=== PATIENT | male | born 1945 | race Caucasian/White ===

== ENCOUNTER 2018-11-09 09:54 | Inpatient (IN) | payer MEDICARE ==
[2018-11-09] MEDS ORDERED: ISOVUE-370 76%-LOCM 1 ML ONE (10:09)
[2018-11-09 10:42] LABS: Mean Corpuscular HGB CONC 33.5 g/dL (32.0-36.0); Mean Corpuscular Hemoglobin 36.2 pg (27.0-31.0); Mean Platelet Volume 7.2 fL (7.4-10.4); Platelet Count 140 thou/uL (130-400); RBC Distribution Width 14.3 % (11.5-14.5); Red Blood Cell (RBC) Count 3.05 mill/uL (4.70-6.10); White Blood Cell (WBC) Count 2.3 thou/uL (4.8-10.8)
[2018-11-09] MEDS ORDERED: Metoprolol Tartrate 5 MG/5 ML VIAL ONE (10:46)
[2018-11-09 10:56] LABS: #Lymphocytes 0.3 thou/uL (1.20-3.40); #Monocytes 0.1 thou/uL (0.11-0.59); #Neutrophils 1.9 thou/uL (1.40-6.50); %Eosinophils 0.3 % (0.0-10.0); %Lymphocytes 12.8 % (21.0-51.0); %Monocytes 4.2 % (0.0-10.0); %Neutrophils 82.8 % (42.0-75.0); MDiff Complete? YES; Macrocytosis SLIGHT = 6-15 cells (100X) (0-5/hpf); Ovalocytes SLIGHT = 2-5 cells (100X) (0-1/hpf); Platelet Morphology Comment Appears Adequate; Polychromasia SLIGHT = 2-3 cells (100X) (0-2/hpf)
[2018-11-09 11:01] LABS: ALT (SGPT) 21 U/L (8-55); AST (SGOT) 58 U/L (5-34); Albumin 3.9 g/dL (3.4-4.8); Alkaline Phosphatase 57 U/L (40-150); Anion Gap 17 mmol/L (10-20); BUN (Urea Nitrogen) 23 mg/dL (8.4-25.7); Bilirubin, Total 1.1 mg/dL (0.2-1.2); Calc. Creatinine Clearance 0 mL/min (70-130); Calcium 8.3 mg/dL (7.8-10.44); Carbon Dioxide 23 mmol/L (23-31); Chloride 93 mmol/L (98-107); Estimated GFR-MDRD 70; Globulin 3.5 g/dL (2.4-3.5); Glucose 115 mg/dL (83-110); Potassium 4.4 mmol/L (3.5-5.1); Protein, Total 7.4 g/dL (5.8-8.1); Sodium 129 mmol/L (136-145)
--- NOTE | 2018-11-09 12:22 | CT ---
CONTRAST ENHANCED CTA CHEST: HISTORY: Shortness of breath, cough. History of metastatic breast cancer. FINDINGS: Contrast-enhanced CTA chest performed. Two-D and 3D reconstructed images performed on an independent 3D work station. Images demonstrate a left subclavian MediPort catheter in place. Calcification of the aorta and renato nary arteries seen. A small pericardial effusion is seen. No evidence of pleural effusion seen. Bilateral areas of airspace opacity seen in both upper lobes and to a lesser degree right middle lobe and also some in the right and left lower lobes. Chronic interstitial lung parenchymal changes also present. Peribronchial thickening is also noted bilaterally, more prominent in the lung bases. No evidence of filling defect seen in the pulmonary arteries to suggest pulmonary emboli. There is s ome heterogeneity and expansion noted in the mid sternum along the upper aspect of the body of the st ernum. This may represent old fracture versus metastatic lesion. Correlate with history. IMPRESSION: 1. No evidence of pulmonary emboli. 2. Small pericardial effusion. 3. Bilateral airspace opacities compatible with bilateral pneumonias. 4. Mid sternal area of osseous heterogeneity. This may be due to old sternal fracture versus possib le mid sternal metastases. Correlate with history. POS: [facility]
[2018-11-09 13:00] LABS: INR-International Normal Ratio 1.8; Prothrombin Time 21.4 SEC (12.0-14.7)
[2018-11-09 13:01] LABS: PTT 53.1 SEC (22.9-36.1)
[2018-11-09] MEDS ORDERED: Cefepime 1 GM VIAL ONE (14:20)
[2018-11-09] MEDS ORDERED: Cepastat Lozenges 1 LOZ PO PRN (16:33)
[2018-11-09] MEDS ORDERED: Calcium Carbonate 500 MG ChewTAB PO PRN (17:35)
[2018-11-09] MEDS ORDERED: Senokot S 8.6-50 MG TAB PO PRN (17:35)
[2018-11-09] MEDS ORDERED: Ondansetron PF 4 MG/2 ML Vial IVP PRN (17:35)
[2018-11-09] MEDS ORDERED: Ondansetron ODT 4 MG TAB PO PRN (17:35)
[2018-11-09] MEDS ORDERED: ALPRAZolam 0.25 MG TAB PO PRN (17:45)
[2018-11-09] MEDS ORDERED: Polyethylene Glycol 3350 17 GM Packet PO PRN (17:48)
[2018-11-09] MEDS ORDERED: Warfarin Sodium 1 MG TAB PO SCH (18:00)
[2018-11-09 18:20] VITALS: BMI 34.5
[2018-11-09] MEDS: Benzonatate 100 MG CAP PO PRN ×2 (18:20→23:08)
[2018-11-09] MEDS: Acetaminophen 325 MG TAB PO PRN (18:20)
[2018-11-09] MEDS: Sodium Chloride 0.9% 1,000 ML IV SCH (18:22)
--- NOTE | 2018-11-09 18:27 | HP ---
PRIMARY CARE PHYSICIAN: None. 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 CHIEF COMPLAINT: Cough with generalized weakness. The patient was sent to the emergency room by the covering oncologist. HISTORY OF PRESENT ILLNESS: The patient is a 73-year-old white male with metastatic right breast malignancy; chronic atrial fibrillation, on anticoagulation; hypertension; hyperlipidemia; and chronic anticoagulation, presented to the emergency room with above symptoms. Over the past three weeks, the patient is not feeling well. He has progressively worsening cough, which is productive of small amount of thick whitish phlegm. He gets short of breath on moderate exertion. He has been feeling generally weak and fatigued. He felt dizzy and lightheaded yesterday without significant injuries. He has not been eating well over the past two weeks. He denies any chest pain or significant wheezing. He is currently on Faslodex every 4 weeks as well as palbociclib for 21 days in a month. In the emergency room, his initial vital signs showed temperature of 98.4, respirations of 26, pulse rate of 128 with a blood pressure of 130/84, with O2 saturation of 88% on room air. His O2 saturation improved with supplementation. He received cefepime, Levaquin, and 5 mg metoprolol in the emergency room. CT angiogram of the chest showed bilateral pneumonia. PAST MEDICAL HISTORY: 1. Chronic atrial fibrillation, on anticoagulation. 2. Metastatic right breast malignancy. 3. Hypertension. 4. Hyperlipidemia. PAST SURGICAL HISTORY: 1. Right breast mastectomy with radiation. 2. Right ankle surgery. 3. Right wrist surgery. ALLERGIES: 1. THE PATIENT IS ALLERGIC TO DEMEROL, THAT CAUSES ANAPHYLAXIS. 2. PENICILLIN, REACTION UNKNOWN. CURRENT HOME MEDICATIONS: 1. Tylenol No. 3 as needed. 2. Allopurinol 300 mg daily. 3. Xanax as needed. 4. Coumadin 2 mg on Tuesdays and and 1 mg on rest of the days. 5. Faslodex every 4 weeks. 6. Lovastatin 20 mg daily. 7. Robaxin as needed. 8. Metoprolol tartrate 50 mg daily. 9. Palbociclib 125 mg capsule for 21 days followed by 7-day off, then repeat cycle. 10. MiraLAX daily. 11. Senokot-S daily. 12. Tramadol as needed. SOCIAL HISTORY: The patient currently lives at home with his family. He denies current use of smoking, alcohol, or drug use. He makes his own decision with the help of his family. He is full code. FAMILY HISTORY: Negative for premature coronary artery disease. REVIEW OF SYSTEMS: All other review of systems were reviewed and were found negative. PHYSICAL EXAMINATION: VITAL SIGNS: As discussed above. GENERAL: A 73-year-old male, ill appearing, in no apparent distress. Feels better. HEENT: Head, atraumatic and normocephalic. Sclerae anicteric. Moist mucous membranes. No oral lesion. NECK: Supple. No JVD appreciated. No carotid bruit. LUNGS: Showed bilateral rhonchi mainly in the upper lobes with scattered wheezing. There was scattered rales. Lungs were symmetrical. HEART: S1 and S2 present. Irregularly irregular. No rubs or gallops appreciated. 2/6 systolic murmur over the mitral area. ABDOMEN: Soft, nontender, obese. Bowel sounds present. EXTREMITIES: Trace edema in bilateral lower extremities. SKIN: Warm and dry. LYMPH NODES: No palpable lymph nodes in the neck. PERIPHERAL VASCULAR: Radial pulses palpable bilaterally. MUSCULOSKELETAL: No joint swelling or tenderness. SKIN: Warm and dry. LABORATORY FINDINGS: WBC 2.3, hemoglobin 11, hematocrit 32.9, and platelets 140. INR 1.8. Chemistry showed sodium 129, potassium 4.4, chloride 93, bicarb 23, BUN 23, and creatinine 1.04. Lactic acid 2.8, AST 58. Troponin negative. BNP 77. CT angiogram of the chest per my review as discussed above. EKG by my review showed atrial fibrillation with rapid ventricular response with right bundle-branch block and left axis deviation. IMPRESSION: 1. Acute hypoxic respiratory failure/Sepsis with acute organ dysfunction secondary to bilateral pneumonia. ?Pneumococcal 2. Metastatic right breast malignancy, on chemotherapy. 3. Chronic pain syndrome. 4. Atrial fibrillation with rapid ventricular response, requiring IV metoprolol. 5. Chronic anticoagulation with subtherapeutic INR. 6. Hyperlipidemia. 7. Lactic acidosis secondary to sepsis. 8. Hyponatremia. 9. Leukopenia. 10. Chronic anemia. 11. Macrocytosis. 12. Pericardial effusion on CT. 13. Obesity BMI 34. PLAN: The patient will be monitored on the telemetry unit due to atrial fibrillation with rapid ventricular response. Oncology team and Infectious Disease will be consulted. We will continue cefepime and Levaquin. Blood cultures have been sent. We will check influenza screen. We will resume anticoagulation. Consult Physical Therapy/Occupational Therapy. Fall precautions. Gentle IV hydration. Echocardiogram due to pericardial effusion on the CT. Plan of care was discussed with the patient in detail. He stated understanding. The patient will require 2 to 3 days for stabilization. Job ID: [id number] MTDD
[2018-11-09] MEDS: Budesonide 0.5 MG/2 ML NEB INH SCH (19:13)
[2018-11-09] MEDS ORDERED: Nitroglycerin 0.4 MG TAB (25 Tab Bottle) PO PRN (19:57)
[2018-11-09] MEDS: Allopurinol 300 MG TAB PO SCH (20:25)
[2018-11-09] MEDS: guaiFENesin ER 600 MG TAB PO SCH ×2 (20:25→20:27)
[2018-11-09] MEDS: Docusate 100 MG CAP PO SCH (20:25)
[2018-11-09] MEDS: Metoprolol Tartrate 25 MG TAB PO SCH (20:25)
[2018-11-10] MEDS: Cefepime 2 GM in Sodium Chloride 0.9% 100 ML IVPB SCH ×2 (03:19→15:46)
[2018-11-10] MEDS: Benzonatate 100 MG CAP PO PRN ×3 (05:12→22:11)
[2018-11-10] MEDS: Sodium Chloride 0.9% 1,000 ML IV SCH ×2 (05:13→22:10)
[2018-11-10 06:26] LABS: INR-International Normal Ratio 2.5; PTT 66.9 SEC (22.9-36.1); Prothrombin Time 27.4 SEC (12.0-14.7)
[2018-11-10] MEDS: Budesonide 0.5 MG/2 ML NEB INH SCH ×2 (06:42→18:50)
[2018-11-10 06:43] LABS: #Lymphocytes 0.3 thou/uL (1.20-3.40); %Basophils 0.1 % (0.0-1.0); %Eosinophils 2.5 % (0.0-10.0); %Lymphocytes 18.4 % (21.0-51.0); %Monocytes 2.1 % (0.0-10.0); %Neutrophils 76.9 % (42.0-75.0); Hemoglobin 9.4 g/dL (14.0-18.0); MDiff Complete? YES; Macrocytosis SLIGHT = 6-15 cells (100X) (0-5/hpf); Mean Platelet Volume 7.6 fL (7.4-10.4); Platelet Count 106 thou/uL (130-400); Platelet Morphology Comment Appears Decreased; Red Blood Cell (RBC) Count 2.54 mill/uL (4.70-6.10); White Blood Cell (WBC) Count 1.4 thou/uL (4.8-10.8)
[2018-11-10 06:44] LABS: ALT (SGPT) 16 U/L (8-55); AST (SGOT) 39 U/L (5-34); Albumin 3.2 g/dL (3.4-4.8); Alkaline Phosphatase 48 U/L (40-150); Anion Gap 12 mmol/L (10-20); BUN (Urea Nitrogen) 18 mg/dL (8.4-25.7); Bilirubin, Total 0.6 mg/dL (0.2-1.2); Calc. Creatinine Clearance 132 mL/min (70-130); Calcium 7.6 mg/dL (7.8-10.44); Carbon Dioxide 25 mmol/L (23-31); Chloride 100 mmol/L (98-107); Estimated GFR-MDRD Greater than 90; Globulin 2.7 g/dL (2.4-3.5); Glucose 108 mg/dL (83-110); Magnesium 1.7 mg/dL (1.6-2.6); Potassium 3.9 mmol/L (3.5-5.1); Protein, Total 5.9 g/dL (5.8-8.1); Sodium 133 mmol/L (136-145)
[2018-11-10 07:27] LABS: Folate (Folic Acid) 6.4 ng/mL (7.0-31.4)
[2018-11-10] MEDS: Docusate 100 MG CAP PO SCH ×2 (09:22→19:36)
[2018-11-10] MEDS: Folic Acid 1 MG TAB PO SCH (09:22)
[2018-11-10] MEDS: Metoprolol Tartrate 25 MG TAB PO SCH ×2 (09:22→19:36)
[2018-11-10] MEDS: guaiFENesin ER 600 MG TAB PO SCH ×4 (09:22→20:30)
[2018-11-10] MEDS ORDERED: Sodium Chloride 0.65% Nasal 44 ML BOT EA NARE PRN (14:04)
[2018-11-10] MEDS ORDERED: Chloraseptic Spray 180 ml Bottle PO PRN (14:06)
[2018-11-10] MEDS ORDERED: Lidocaine Viscous Sol 2% 15 ml UD Cup SSP PRN (14:06)
[2018-11-10] MEDS: Warfarin Sodium 1 MG TAB PO SCH (17:52)
[2018-11-10] MEDS: guaiFENesin/Codeine Phosphate 200 mg/20 mg 10 ml UD Cup PO PRN (19:35)
[2018-11-10] MEDS: Allopurinol 300 MG TAB PO SCH (19:36)
--- NOTE | 2018-11-10 22:32 | CON ---
DATE OF CONSULTATION: REASON FOR CONSULTATION: Metastatic breast cancer, neutropenia. HISTORY OF PRESENT ILLNESS: This is a 73-year-old male with history of breast cancer diagnosed in 2012, status post mastectomy and chemotherapy with recurrence in 2013 or 2014, status post sternal radiation with a second sternal recurrence one year after that, status post radiation and currently on Ibrance plus Faslodex plus Lupron, presenting to the hospital with shortness of breath and cough. The patient has progressively worsening cough and shortness of breath with accompanying dizziness, lightheadedness, fatigue, and generalized not feeling well over the past couple of weeks. The patient feels slightly better since admission to the hospital with improvement in his cough. Of note, on admission, the patient had a CT angio of the chest that did not reveal pulmonary embolism, but did show bilateral pneumonia along with a midsternal area of osseous heterogeneity that perhaps could be secondary to a sternal metastasis. The patient states he had a PET scan approximately 30 days ago that showed activity in his sternum as well as his left hip. He has been on Ibrance and Faslodex for the last 2 years and Lupron was started last month after the PET scan. He has tolerated his therapy well, but states his Ibrance has needed to be held in the past due to low counts. The patient states he is also taking an injection for his bones. REVIEW OF SYSTEMS: 10-point review of systems negative except as per HPI. PAST MEDICAL HISTORY: Metastatic right breast cancer; atrial fibrillation, on Coumadin; hypertension, and hyperlipidemia. PAST SURGICAL HISTORY: Right breast mastectomy, right ankle surgery, right wrist surgery. ALLERGIES: DEMEROL, PENICILLIN. HOME MEDICATIONS: Reviewed. SOCIAL HISTORY: Lives at home with his family. No smoking, alcohol, or drug use. FAMILY HISTORY: Noncontributory. PHYSICAL EXAMINATION: VITAL SIGNS: Temperature 97.3, pulse 106, respirations 18, saturating 97% on 2 L by nasal cannula, and blood pressure 133/70. GENERAL APPEARANCE: The patient is sitting up in chair, in no acute distress. HEENT: No cervical lymphadenopathy. No jaundice or scleral icterus noted. CARDIOVASCULAR: S1, S2 and regular rate and rhythm. RESPIRATIONS: Diffuse rhonchi and difficult to assess due to coughing fits when he takes a deep breath. However, there is good air movement throughout. The patient is currently on 2 L by nasal cannula. ABDOMEN: Obese, soft, nondistended, and nontender. STERNAL: There is no sternal tenderness. NEUROLOGIC: Cranial nerves II through XII are grossly intact. PSYCHIATRIC: Awake, alert, and oriented x3. LYMPHATICS: There is no palpable lymphadenopathy. CHEST: No sternal tenderness. The patient is status post right mastectomy. LABORATORY DATA: White blood cells 2.3, hemoglobin 11.0, platelets 140 on admission, ANC 1900 on admission. Laboratory data this morning; white blood cells 1.4, hemoglobin 9.4, platelets 106. ANC this morning 1076. Sodium 133, potassium 3.9, BUN 18, creatinine 0.77. Lactic acid 2.8 on admission down to 2.0, calcium 7.6. AST 39, ALT 16, alkaline phosphatase 48, and albumin 3.2. Vitamin B12 551 , folate 6.40. IMAGING DATA: CT angio of the chest shows bilateral pneumonias and possible sternal metastasis. The sternal metastasis is avid on PET as per patient reported history. ASSESSMENT AND PLAN: A 73-year-old male with right breast cancer metastatic to sternum and left hip, currently on Ibrance, Faslodex, Lupron, and a bone strengthening agent, presenting with neutropenia and bilateral pneumonia. The patient's vitals are stable and his heart rate has improved and is currently admitted to [facility] for atrial fibrillation with rapid ventricular response. The patient's ANC was 1900 on admission, is currently 1070. Therefore, he does not require Neupogen at this time. His Ibrance is currently on hold and I recommend continuing to hold this and not to restart until he sees his oncologist in [place]. I recommend trending his white blood cells and if he dips below 1000 ANC tomorrow, then would recommend initiating Neupogen. The patient also has folic acid deficiency and he should be started on folic acid supplementation. I will monitor his clinical course and follow along with you. Thank you for this consult. Job ID: [id number] [facility] SYSTEM[facility]
--- NOTE | 2018-11-10 22:32 | PRG ---
DATE OF SERVICE: 11/10/2018 SUBJECTIVE: The patient denies any new complaints. Cough is controlled on current antitussives. He gets short of breath on moderate exertion. He denies any other complaints. REVIEW OF SYSTEMS: No nausea, vomiting, constipation, diarrhea, or fatigue reported. CURRENT MEDICATIONS: Current medications were reviewed. The patient is currently on cefepime with Levaquin, IV fluid, Mucinex, metoprolol, and warfarin. IMAGING DATA: Telemetry monitoring by my review showed atrial fibrillation. PHYSICAL EXAMINATION: GENERAL: A 73-year-old male, in no apparent distress. No chest pain. LUNGS: Showed diffuse rhonchi with scattered wheezing. There was some rales mainly in the upper lobes bilaterally. No accessory muscle use. HEART: S1 and S2 present. Irregularly irregular. No rubs or gallops. ABDOMEN: Soft, nontender. Bowel sounds present. No rebound or guarding. EXTREMITIES: No edema or calf tenderness. NEUROLOGIC: Grossly nonfocal. Moves all 4 extremities. PSYCHIATRY: Normal affect. Alert, awake, and oriented x3. VITAL SIGNS: Intake of 1915. LABORATORY FINDINGS: Folic acid 6.4, vitamin B12 551. WBC 1.4 with 77% neutrophils, hemoglobin 9.4, INR 2.5. TSH was normal. Creatinine 0.7. Blood cultures negative. Influenza screen negative. Echocardiogram showed mild to moderate tricuspid regurgitation. Ejection fraction 50% to 55% with moderate mitral regurgitation. IMPRESSION: 1. Acute hypoxic respiratory failure. 2. Sepsis with acute organ dysfunction secondary to bilateral pneumonia, suspected pneumococcal. 3. Neutropenia secondary to chemotherapy. 4. Metastatic right breast malignancy, on chemo, currently on hold per primary oncologist. 5. Chronic pain syndrome. 6. Atrial fibrillation with rapid ventricular response, rate controlled. 7. Chronic anticoagulation. 8. Lactic acidosis due to sepsis, improved. 9. Hyperlipidemia. 10. Hyponatremia. 11. Chronic anemia. 12. Folic acid deficiency causing macrocytosis. 13. Pericardial effusion on CT. Echocardiogram did not show significant pericardial effusion. 14. Obesity with a BMI of 34. PLAN: Cefepime and Levaquin will be continued. Await Infectious Disease and Oncology input. Neutropenic precautions. Continue current medications. We will monitor warfarin closely due to possible interaction with quinolones. We will recheck labs in a.m. The patient will probably require 2-3 more days for stabilization. Job ID: [id number]
[2018-11-11] MEDS: Cefepime 2 GM in Sodium Chloride 0.9% 100 ML IVPB SCH ×2 (02:59→15:59)
[2018-11-11 07:05] LABS: PTT 74.5 SEC (22.9-36.1)
[2018-11-11 07:08] LABS: INR-International Normal Ratio 2.7; Prothrombin Time 28.9 SEC (12.0-14.7)
[2018-11-11] MEDS: Budesonide 0.5 MG/2 ML NEB INH SCH ×2 (07:15→18:42)
[2018-11-11 07:21] LABS: ALT (SGPT) 15 U/L (8-55); AST (SGOT) 34 U/L (5-34); Alkaline Phosphatase 52 U/L (40-150); Anion Gap 12 mmol/L (10-20); BUN (Urea Nitrogen) 15 mg/dL (8.4-25.7); Bilirubin, Total 0.5 mg/dL (0.2-1.2); Calc. Creatinine Clearance 143 mL/min (70-130); Calcium 7.5 mg/dL (7.8-10.44); Carbon Dioxide 23 mmol/L (23-31); Chloride 105 mmol/L (98-107); Estimated GFR-MDRD Greater than 90; Globulin 2.7 g/dL (2.4-3.5); Glucose 94 mg/dL (83-110); Magnesium 1.6 mg/dL (1.6-2.6); Protein, Total 5.7 g/dL (5.8-8.1); Sodium 136 mmol/L (136-145)
[2018-11-11 07:58] LABS: #Eosinphils 0.1 thou/uL (0.0-0.7); #Lymphocytes 0.3 thou/uL (1.20-3.40); #Monocytes 0.1 thou/uL (0.11-0.59); #Neutrophils 0.8 thou/uL (1.40-6.50); %Eosinophils 5.3 % (0.0-10.0); %Lymphocytes 23.9 % (21.0-51.0); %Neutrophils 64.9 % (42.0-75.0); Hemoglobin 9.2 g/dL (14.0-18.0); MDiff Complete? YES; Mean Corpuscular HGB CONC 33.9 g/dL (32.0-36.0); Mean Corpuscular Hemoglobin 38.2 pg (27.0-31.0); Mean Platelet Volume 7.5 fL (7.4-10.4); Platelet Count 96 thou/uL (130-400); Platelet Morphology Comment Appears Decreased; RBC Distribution Width 14.2 % (11.5-14.5); White Blood Cell (WBC) Count 1.2 thou/uL (4.8-10.8)
[2018-11-11] MEDS: Metoprolol Tartrate 25 MG TAB PO SCH ×2 (08:26→21:00)
[2018-11-11] MEDS: guaiFENesin/Codeine Phosphate 200 mg/20 mg 10 ml UD Cup PO PRN ×2 (08:27→16:56)
[2018-11-11] MEDS: Folic Acid 1 MG TAB PO SCH ×2 (08:27→21:00)
[2018-11-11] MEDS: Docusate 100 MG CAP PO SCH ×2 (08:27→21:00)
[2018-11-11] MEDS: guaiFENesin ER 600 MG TAB PO SCH ×2 (08:27→21:00)
--- NOTE | 2018-11-11 12:20 | RAD ---
PA AND LATERAL CHEST: Date: 11/11/18 HISTORY: Pneumonia, follow-up evaluation. FINDINGS: Left subclavian MediPort catheter remains in place. Cardiac silhouette is magnified by projection. Th ere is mild increase in interstitial densities bilaterally, which may be related to mild chronic lung changes, but there is suggestion of mild reticulonodular densities in the left mid lung zone at the left lung base which may be related to infectious or inflammatory process. There is no consolidation or pleural fluid seen. Surgical clips overlie the right axillary region. No other interval change. IMPRESSION: Mild chronic lung changes. However, there is also suggestion of mild reticulonodular densities in the left mid lung zone and at the left lung base, which could be related to infectious or inflammatory p rocess. Follow-up evaluation is suggested. POS: [facility]
[2018-11-11] MEDS: Sodium Chloride 0.9% 1,000 ML IV SCH (14:02)
[2018-11-11] MEDS: Warfarin Sodium 1 MG TAB PO SCH (16:00)
--- NOTE | 2018-11-11 18:48 | PDOC.PN ---
- Subjective Encounter Start Date: 11/11/18 Encounter Start Time: 14:00 Patient seen and examined for Sepsis. Feels gen weak. Cough +. No new complaints. No overnight events - Objective Resuscitation Status - Order Detail: 11/09/18 17:35 Resuscitation Status Routine Resuscitation Status: FULL: Full Resuscitation MAR Reviewed: Yes Vital Signs & Weight: Vital Signs (12 hours) Temp Pulse Pulse Pulse Resp BP BP 11/11/18 18:42 105 H 18 11/11/18 16:00 98.0 F 110 H 20 11/11/18 13:55 133 H 106 H 141/86 H 130/84 11/11/18 12:00 97.7 F 94 15 11/11/18 07:35 97.6 F 109 H 16 BP Pulse Ox 11/11/18 18:42 99 11/11/18 16:00 130/68 98 11/11/18 13:55 11/11/18 12:00 132/63 94 L 11/11/18 07:35 155/63 H 97 Weight Weight 248 lb I&O: 11/10/18 11/11/18 11/12/18 06:59 06:59 06:59 Intake Total 360 1965 2150 Output Total 1170 725 Balance -810 1240 2150 Result Diagrams: 11/11/18 05:53 11/11/18 05:53 Radiology Reviewed by me: Yes (CXR - No significant changes) EKG Reviewed by me: Yes (Tele Afib) Phys Exam - Physical Examination Constitutional: NAD Respiratory: no wheezing Scat rales/rhonchi Cardiovascular: no rub, irregular Gastrointestinal: soft, non-tender, positive bowel sounds Musculoskeletal: no edema Dx/Plan - Plan IMPRESSION: 1. Acute hypoxic respiratory failure. 2. Sepsis with acute organ dysfunction secondary to bilateral pneumonia ? pneumococcal. 3. Neutropenia secondary to chemotherapy. 4. Metastatic right breast malignancy. 5. Chronic pain syndrome. 6. Atrial fibrillation with rapid ventricular response. 7. Chronic anticoagulation. 8. Lactic acidosis due to sepsis, improved. 9. Hyperlipidemia. 10. Hyponatremia. 11. Chronic anemia. 12. Folic acid deficiency causing macrocytosis. 13. Pericardial effusion on CT. Echocardiogram did not show significant pericardial effusion. 14. Obesity with a BMI of 34. 15. Hypomagnesemia PLAN: Cont Cefepime and Levaquin Await Infectious Disease Oncology input appreciated Cont Neutropenic precautions. Continue current medications as below Replace Magnessium PT/INR in AM Microbiology 11/09/18 23:39 Nasal swab Influenza Types A,B Direct EIA - Final 11/09/18 10:08 Venous blood - Left Arm Blood Culture - Preliminary NO GROWTH AT 48 HOURS Laboratory Tests 11/10/18 11/11/18 06:00 05:53 INR 2.7 Folate 6.40 L Review of Systems - Review of Systems Respiratory: Cough, Sputum. negative: Dry, Shortness of Breath, Hemoptysis, SOB with Excertion, Pleuritic Pain, Wheezing Cardiovascular: negative: chest pain, palpitations, orthopnea, paroxysmal nocturnal dyspnea, edema, light headedness, other Gastrointestinal: negative: Nausea, Vomiting, Abdominal Pain, Diarrhea, Constipation, Melena, Hematochezia, Other - Medications/Allergies Allergies/Adverse Reactions: Allergies Allergy/AdvReac Type Severity Reaction Status Date / Time meperidine [From Demerol] Allergy Severe Anaphylaxis Verified 11/09/18 20:24 Penicillins Allergy Verified 11/09/18 20:24 Medications: Current Medications Acetaminophen (Tylenol) 650 mg PO Q4H PRN PRN Reason: Headache/Fever/Mild Pain (1-3) Last Admin: 11/09/18 18:20 Dose: 650 mg Albuterol/Ipratropium (Duoneb) 3 ml NEB [id number] PRN PRN Reason: SOB &/or Wheezing Allopurinol (Zyloprim) 300 mg PO HS [facility] Last Admin: 11/10/18 19:36 Dose: 300 mg Alprazolam (Xanax) 0.25 mg PO BIDPRN PRN PRN Reason: Anxiety Benzonatate (Tessalon) 100 mg PO TID PRN PRN Reason: Cough Last Admin: 11/10/18 22:11 Dose: 100 mg Budesonide (Pulmicort Neb Solution) 0.5 mg INH BID-RT [facility] Last Admin: 11/11/18 18:42 Dose: 0.5 mg Calcium Carbonate (Tums) 1,000 mg PO Q4H PRN PRN Reason: Heartburn or Indigestion Docusate Sodium (Colace) 100 mg PO BID [facility] Last Admin: 11/11/18 08:27 Dose: 100 mg Folic Acid (Folvite) 1 mg PO BID [facility] Guaifenesin (Mucinex) 600 mg PO Q12HR [facility] Last Admin: 11/11/18 08:27 Dose: 600 mg Guaifenesin (Robitussin Sf) 200 mg PO Q4H PRN PRN Reason: Cough Guaifenesin/Codeine Phosphate (Robitussin Ac) 5 ml PO Q6H PRN PRN Reason: Cough Last Admin: 11/11/18 16:56 Dose: 5 ml Sodium Chloride (Normal Saline 0.9%) 1,000 mls @ 75 mls/hr IV .[id number] [facility] Last Admin: 11/11/18 14:02 Dose: 1,000 mls Cefepime HCl 2 gm/ Sodium (Chloride) 100 mls @ 200 mls/hr IVPB 0300,1500 [facility] Last Admin: 11/11/18 15:59 Dose: 100 mls Levofloxacin 500 mg/ Device 100 mls @ 100 mls/hr IVPB 1400 [facility] Last Admin: 11/11/18 14:02 Dose: 100 mls Magnesium Sulfate 2 gm/ Sodium (Chloride) 104 mls @ 100 mls/hr IVPB ONE [facility] Lidocaine HCl (Xylocaine 2% Viscous) 15 ml SSP Q4HR PRN PRN Reason: Dry Mouth Metoprolol Tartrate (Lopressor) 25 mg PO BID [facility] Last Admin: 11/11/18 08:26 Dose: 25 mg Mineral Oil/White Petrolatum (Aquaphor 99 Gm) 0 gm TOP PRN PRN PRN Reason: SKIN IRRITATION Miscellaneous Medication (Pharmacy To Dose) 1 each PO .WARFARIN [facility] Nitroglycerin (Nitrostat) 0.4 mg PO Q5MIN PRN PRN Reason: Chest Pain Ondansetron HCl (Zofran Odt) 4 mg PO Q6H PRN PRN Reason: Nausea/Vomiting Ondansetron HCl (Zofran) 4 mg IVP Q6H PRN PRN Reason: Nausea/Vomiting Phenol (Chloraseptic [place] 180 Ml Bot) 0 ml PO BIDPRN PRN PRN Reason: Sore Throat Polyethylene Glycol (Miralax) 17 gm PO DAILY PRN PRN Reason: Constipation Senna/Docusate Sodium (Senokot S) 2 tab PO BID PRN PRN Reason: Constipation Sodium Chloride (Flush - Normal Saline) 10 ml IVF PRN PRN PRN Reason: Saline Flush Sodium Chloride (Pike Nasal [place] 0.65%) 0 ml EA NARE TID PRN PRN Reason: Nasal Congestion Tbo-Filgrastim (Granix) 480 mcg SC DAILY@1400 [facility] Last Admin: 11/11/18 15:59 Dose: 480 mcg Throat Lozenges (Cepastat Lozenges) 1 julián PO Q2H PRN PRN Reason: Sore Throat Warfarin Sodium (Coumadin) 1 mg PO SuMoWeFrSa@1700 [facility] Last Admin: 11/11/18 16:00 Dose: 1 mg Warfarin Sodium (Coumadin) 2 mg PO TTH@1700 [facility]
--- NOTE | 2018-11-11 18:48 | CON ---
DATE OF CONSULTATION: 11/11/2018 REASON FOR CONSULTATION: Pneumonia with sepsis. HISTORY OF PRESENT ILLNESS: A 73-year-old patient, who has a history of atrial fibrillation and metastatic right-sided breast cancer diagnosed about 5 years ago, who has been on chemotherapy. His first recurrence was noted in 2013 and had sternal radiation and currently, he is on palbociclib. He gets cycle of 21 days on the therapy and 7 days off. He is admitted this time with worsening dyspnea with cough, lightheadedness, fatigue and general malaise. He had a CT angio on admission, which showed no evidence of pulmonary embolism, but there was evidence of bilateral pulmonary infiltrates. His last PET scan was 30 days before admission and showed sternum activity. Initial labs with a white cell count 2.3, hemoglobin 11, and platelets 140, with 82% neutrophils. Creatinine 1.04, AST 58, ALT 21, alkaline phosphatase 57, and albumin 3.9. Two sets of blood cultures thus far have been negative and influenza antigen was negative. He has been given broad-spectrum and antimicrobial therapy with cefepime and levofloxacin. Still having frequent episodes of coughing spells. His white cells have decreased to 1.2 with 64% neutrophils, and a followup chest x-ray demonstrates reticulonodular densities left midlung and left lung base. An echocardiogram demonstrated dilated left atrium and moderate mitral regurgitation. Currently, Mr. Loaiza still having intermittent coughing spells. He is bringing up a little bit of sputum. He denies any headaches. No visual symptoms, sore throat, odynophagia, or dysphagia. No back pain. No abdominal pain or diarrhea. No genitourinary symptoms. He is voiding in the toilet. PAST MEDICAL HISTORY: Atrial fibrillation on anticoagulation, metastatic right breast malignancy to bone, mostly on palbociclib, hypertension, and hyperlipidemia. PAST SURGICAL HISTORY: Mastectomy with radiation, ankle and wrist surgeries. ALLERGIES: DEMEROL WITH ANAPHYLAXIS AND PENICILLIN, UNKNOWN REACTION. SOCIAL HISTORY: Never smoker. Living with family. FAMILY HISTORY: Noncontributory. CURRENT MEDICATIONS: Include; 1. Tylenol. 2. DuoNeb. 3. Zyloprim. 4. Xanax. 5. Tessalon. 6. Pulmicort. 7. Cefepime. 8. Levofloxacin. 9. Robitussin. 10. Lopressor. 11. Nitrostat. 12. Zofran. 13. MiraLAX. 14. Senokot. 15. Warfarin. PHYSICAL EXAMINATION: VITAL SIGNS: T-max 98.7, blood pressure 140/80, pulse 94, respirations 15, and O2 saturation 94%. SKIN: There is mild erythema in the presacral in the intergluteal region. The patient has a peripheral IV access. He has a port, which is not accessed at this time in the left subclavian position and no lymphadenopathy. HEENT: Alopecia. Ocular movements conjugate. Conjunctivae normal. Oral cavity was not remarkable. NECK: Supple. No jugular venous distention. LUNGS: With scattered inspiratory crackles at the bases. HEART: S1 and S2. Regular rate. No S3 or S4. ABDOMEN: Soft, not distended or tender. No ascites. No bladder distention. EXTREMITIES: No joint inflammatory activity. Pulses 1+ in dorsalis pedis. Moves extremities equally. NEUROLOGIC: Cognitive function appears to be intact. LABORATORY DATA: White cell count 1.2, hemoglobin 9.2, MCV 113, and platelet count 96,000 with 64% neutrophils. INR 2.7. Sodium 133, creatinine 0.77, calcium 7.6 , magnesium 1.7, AST 39, ALT 16, alkaline phosphatase 48, and albumin 3.2. Microbiology with negative blood cultures. The imaging studies as discussed. IMPRESSION: Metastatic breast cancer on palbociclib, who was admitted with moderate neutropenia associated with respiratory symptoms. Response to treatment has been moderate. He still has quite a bit of coughing spells. DISCUSSION: Differential diagnosis includes bacterial versus viral pneumonitis associated with neutropenic effects of the cyclin inhibitor therapy. Opportunistic infectious process is also possible, although not a lot of opportunistic fungal or viral infections have been described in the literature and most of the processes are bacterial in nature when associated with palbociclib induced neutropenia. We will complete workup with respiratory virus PCR. Otherwise, continue current regimen. Submit strep pneumo and Legionella antigen in urine if not done yet. If the symptoms persist, then we will have to be concerned with an opportunistic process, particularly fungal and viral pneumonitis. We will have to submit further testing accordingly. Job ID: [id number] [facility]
[2018-11-11] MEDS ORDERED: Magnesium 2 GM/50 ML 2 GM in Premix Bag 1 BAG IVPB SCH (19:00)
[2018-11-11] MEDS: Allopurinol 300 MG TAB PO SCH (21:00)
[2018-11-11] MEDS: Diabetic Tussin 200 MG/10 ML UDCUP PO PRN (21:00)
[2018-11-11] MEDS: Benzonatate 100 MG CAP PO PRN (21:04)
[2018-11-12] MEDS: Cefepime 2 GM in Sodium Chloride 0.9% 100 ML IVPB SCH ×2 (03:15→14:52)
[2018-11-12] MEDS: Sodium Chloride 0.9% 1,000 ML IV SCH ×2 (04:50→13:30)
[2018-11-12 06:12] LABS: INR-International Normal Ratio 2.8; Prothrombin Time 29.4 SEC (12.0-14.7)
[2018-11-12 06:13] LABS: PTT 75.6 SEC (22.9-36.1)
[2018-11-12 06:29] LABS: ALT (SGPT) 14 U/L (8-55); AST (SGOT) 27 U/L (5-34); Alkaline Phosphatase 53 U/L (40-150); Anion Gap 10 mmol/L (10-20); BUN (Urea Nitrogen) 12 mg/dL (8.4-25.7); Bilirubin, Total 0.5 mg/dL (0.2-1.2); Calc. Creatinine Clearance 147 mL/min (70-130); Calcium 7.9 mg/dL (7.8-10.44); Carbon Dioxide 26 mmol/L (23-31); Chloride 106 mmol/L (98-107); Estimated GFR-MDRD Greater than 90; Globulin 2.7 g/dL (2.4-3.5); Glucose 99 mg/dL (83-110); Magnesium 2.2 mg/dL (1.6-2.6); Protein, Total 5.7 g/dL (5.8-8.1); Sodium 138 mmol/L (136-145)
[2018-11-12] MEDS: Budesonide 0.5 MG/2 ML NEB INH SCH ×2 (06:40→18:35)
[2018-11-12 06:50] LABS: #Eosinphils 0.1 thou/uL (0.0-0.7); #Lymphocytes 0.3 thou/uL (1.20-3.40); #Monocytes 0.1 thou/uL (0.11-0.59); #Neutrophils 1.8 thou/uL (1.40-6.50); %Eosinophils 4.2 % (0.0-10.0); %Lymphocytes 12.6 % (21.0-51.0); %Monocytes 5.3 % (0.0-10.0); %Neutrophils 77.9 % (42.0-75.0); Hemoglobin 9.4 g/dL (14.0-18.0); MDiff Complete? YES; Macrocytosis SLIGHT = 6-15 cells (100X) (0-5/hpf); Mean Corpuscular HGB CONC 32.7 g/dL (32.0-36.0); Mean Corpuscular Hemoglobin 37.2 pg (27.0-31.0); Mean Platelet Volume 7.5 fL (7.4-10.4); Platelet Count 102 thou/uL (130-400); Platelet Morphology Comment Appears Decreased; RBC Distribution Width 14.2 % (11.5-14.5); Red Blood Cell (RBC) Count 2.54 mill/uL (4.70-6.10); White Blood Cell (WBC) Count 2.3 thou/uL (4.8-10.8)
[2018-11-12] MEDS: Folic Acid 1 MG TAB PO SCH ×2 (08:49→20:46)
[2018-11-12] MEDS: guaiFENesin ER 600 MG TAB PO SCH ×2 (08:49→20:45)
[2018-11-12] MEDS: Metoprolol Tartrate 25 MG TAB PO SCH ×2 (08:49→20:45)
[2018-11-12] MEDS: Docusate 100 MG CAP PO SCH (08:49)
[2018-11-12] MEDS: Benzonatate 100 MG CAP PO PRN ×2 (08:52→14:55)
[2018-11-12] MEDS: Diabetic Tussin 200 MG/10 ML UDCUP PO PRN ×3 (08:52→19:10)
[2018-11-12] MEDS ORDERED: Bisacodyl 10 MG SUPP PR PRN (15:48)
[2018-11-12] MEDS: Warfarin Sodium 1 MG TAB PO SCH (15:57)
[2018-11-12] MEDS: Allopurinol 300 MG TAB PO SCH (20:45)
[2018-11-12] MEDS: Senokot S 8.6-50 MG TAB PO SCH (20:46)
--- NOTE | 2018-11-12 21:45 | PDOC.PN ---
- Subjective Encounter Start Date: 11/12/18 Encounter Start Time: 14:00 Patient seen and examined for Sepsis. Cough +. Feels gen weak. No new complaints. No overnight events - Objective Resuscitation Status - Order Detail: 11/09/18 17:35 Resuscitation Status Routine Resuscitation Status: FULL: Full Resuscitation MAR Reviewed: Yes Vital Signs & Weight: Vital Signs (12 hours) Temp Pulse Resp BP Pulse Ox 11/12/18 20:15 98.6 F 109 H 20 129/63 98 11/12/18 18:35 124 H 18 11/12/18 16:35 97.9 F 110 H 18 131/63 98 11/12/18 11:34 97.7 F 106 H 17 112/60 92 L Weight Weight 248 lb I&O: 11/11/18 11/12/18 11/13/18 06:59 06:59 06:59 Intake Total 1965 3830 1280 Output Total 698 182 9685 Balance 1240 2980 -220 Result Diagrams: 11/12/18 05:40 11/12/18 05:40 EKG Reviewed by me: Yes (Tele Afib) Phys Exam - Physical Examination Constitutional: NAD Respiratory: no wheezing B/L rhonchi/rales Cardiovascular: no rub, irregular Gastrointestinal: soft, non-tender, positive bowel sounds Musculoskeletal: no edema Dx/Plan - Plan IMPRESSION: 1. Acute hypoxic respiratory failure/Sepsis with acute organ dysfunction secondary to bilateral pneumonia ?pneumococcal. 2. NSVT 3. Atrial fibrillation with rapid ventricular response. 4. Metastatic right breast malignancy. 5. Chronic pain syndrome. 6. Neutropenia secondary to chemotherapy. 7. Chronic anticoagulation. 8. Lactic acidosis due to sepsis, improved. 9. Hyperlipidemia. 10. Hyponatremia. 11. Chronic anemia. 12. Folic acid deficiency causing macrocytosis. 13. Pericardial effusion on CT. Echocardiogram did not show significant pericardial effusion. 14. Obesity with a BMI of 34. 15. Hypomagnesemia PLAN: Cont current Atbx - Cefepime and PO Levaquin Resp viral panel pend Check Strep Pneumo and Legionella AG per ID Cont Neutropenic precautions. Continue current medications as below AM labs Consult Cardio for NSVT PT/INR in AM Review of Systems - Review of Systems Cardiovascular: negative: chest pain, palpitations, orthopnea, paroxysmal nocturnal dyspnea, edema, light headedness, other Gastrointestinal: Constipation. negative: Nausea, Vomiting, Abdominal Pain, Diarrhea, Melena, Hematochezia, Other - Medications/Allergies Allergies/Adverse Reactions: Allergies Allergy/AdvReac Type Severity Reaction Status Date / Time meperidine [From Demerol] Allergy Severe Anaphylaxis Verified 11/09/18 20:24 Penicillins Allergy Verified 11/09/18 20:24 Medications: Current Medications Acetaminophen (Tylenol) 650 mg PO Q4H PRN PRN Reason: Headache/Fever/Mild Pain (1-3) Last Admin: 11/09/18 18:20 Dose: 650 mg Albuterol/Ipratropium (Duoneb) 3 ml NEB [id number] PRN PRN Reason: SOB &/or Wheezing Allopurinol (Zyloprim) 300 mg PO HS [facility] Last Admin: 11/12/18 20:45 Dose: 300 mg Alprazolam (Xanax) 0.25 mg PO BIDPRN PRN PRN Reason: Anxiety Last Admin: 11/11/18 21:04 Dose: 0.25 mg Benzonatate (Tessalon) 100 mg PO TID PRN PRN Reason: Cough Last Admin: 11/12/18 14:55 Dose: 100 mg Bisacodyl (Dulcolax) 10 mg MS DAILYPRN PRN PRN Reason: Constipation Budesonide (Pulmicort Neb Solution) 0.5 mg INH BID-RT [facility] Last Admin: 11/12/18 18:35 Dose: 0.5 mg Calcium Carbonate (Tums) 1,000 mg PO Q4H PRN PRN Reason: Heartburn or Indigestion Folic Acid (Folvite) 1 mg PO BID [facility] Last Admin: 11/12/18 20:46 Dose: 1 mg Fulvestrant (Faslodex) 500 mg IM ONE [facility] Stop: 11/14/18 12:00 Guaifenesin (Mucinex) 600 mg PO Q12HR [facility] Last Admin: 11/12/18 20:45 Dose: 600 mg Guaifenesin (Robitussin Sf) 200 mg PO Q4H PRN PRN Reason: Cough Last Admin: 11/12/18 19:10 Dose: 200 mg Guaifenesin/Codeine Phosphate (Robitussin Ac) 5 ml PO Q6H PRN PRN Reason: Cough Last Admin: 11/11/18 16:56 Dose: 5 ml Sodium Chloride (Normal Saline 0.9%) 1,000 mls @ 75 mls/hr IV .[id number] [facility] Last Admin: 11/12/18 13:30 Dose: 1,000 mls Cefepime HCl 2 gm/ Sodium (Chloride) 100 mls @ 200 mls/hr IVPB 0300,1500 [facility] Last Admin: 11/12/18 14:52 Dose: 100 mls Lactulose (Lactulose) 10 gm PO DAILYPRN PRN PRN Reason: Constipation Levofloxacin (Levaquin) 500 mg PO 0600 [facility] Lidocaine HCl (Xylocaine 2% Viscous) 15 ml SSP Q4HR PRN PRN Reason: Dry Mouth Last Admin: 11/12/18 20:46 Dose: 15 ml Metoprolol Tartrate (Lopressor) 25 mg PO BID [facility] Last Admin: 11/12/18 20:45 Dose: 25 mg Mineral Oil/White Petrolatum (Aquaphor 99 Gm) 0 gm TOP PRN PRN PRN Reason: SKIN IRRITATION Miscellaneous Medication (Pharmacy To Dose) 1 each PO .WARFARIN [facility] Nitroglycerin (Nitrostat) 0.4 mg PO Q5MIN PRN PRN Reason: Chest Pain Ondansetron HCl (Zofran Odt) 4 mg PO Q6H PRN PRN Reason: Nausea/Vomiting Ondansetron HCl (Zofran) 4 mg IVP Q6H PRN PRN Reason: Nausea/Vomiting Phenol (Chloraseptic [place] 180 Ml Bot) 0 ml PO BIDPRN PRN PRN Reason: Sore Throat Polyethylene Glycol (Miralax) 17 gm PO DAILY PRN PRN Reason: Constipation Polyethylene Glycol (Miralax) 17 gm PO DAILY [facility] Senna/Docusate Sodium (Senokot S) 2 tab PO BID PRN PRN Reason: Constipation Senna/Docusate Sodium (Senokot S) 2 tab PO BID [facility] Last Admin: 11/12/18 20:46 Dose: 2 tab Sodium Chloride (Flush - Normal Saline) 10 ml IVF PRN PRN PRN Reason: Saline Flush Sodium Chloride ([place] Nasal [place] 0.65%) 0 ml EA NARE TID PRN PRN Reason: Nasal Congestion Throat Lozenges (Cepastat Lozenges) 1 julián PO Q2H PRN PRN Reason: Sore Throat Warfarin Sodium (Coumadin) 1 mg PO SuMoWeFrSa@1700 [facility]ATH[facility] Last Admin: 11/12/18 15:57 Dose: Not Given Warfarin Sodium (Coumadin) 2 mg PO TTH@1700 CATHERINE
[2018-11-13] MEDS: Cefepime 2 GM in Sodium Chloride 0.9% 100 ML IVPB SCH (03:01)
[2018-11-13] MEDS: Sodium Chloride 0.9% 1,000 ML IV SCH (03:02)
[2018-11-13] MEDS: Acetaminophen 325 MG TAB PO PRN (03:08)
[2018-11-13] MEDS: Benzonatate 100 MG CAP PO PRN (03:08)
[2018-11-13] MEDS: Diabetic Tussin 200 MG/10 ML UDCUP PO PRN (03:34)
[2018-11-13 03:40] LABS: Legionella Urinary Ag Negative (Negative)
[2018-11-13 03:41] LABS: Strep pneumo Urine Ag NEGATIVE (NEGATIVE)
[2018-11-13 06:38] LABS: Hemoglobin 9.2 g/dL (14.0-18.0); Mean Corpuscular HGB CONC 34.3 g/dL (32.0-36.0); Mean Corpuscular Hemoglobin 37.5 pg (27.0-31.0); Mean Platelet Volume 7.7 fL (7.4-10.4); Platelet Count 93 thou/uL (130-400); RBC Distribution Width 14.3 % (11.5-14.5); Red Blood Cell (RBC) Count 2.46 mill/uL (4.70-6.10); White Blood Cell (WBC) Count 3.5 thou/uL (4.8-10.8)
[2018-11-13 06:45] LABS: INR-International Normal Ratio 2.9; PTT 68.5 SEC (22.9-36.1); Prothrombin Time 30.1 SEC (12.0-14.7)
[2018-11-13 06:50] LABS: Anion Gap 11 mmol/L (10-20); BUN (Urea Nitrogen) 11 mg/dL (8.4-25.7); Calc. Creatinine Clearance 145 mL/min (70-130); Calcium 8.2 mg/dL (7.8-10.44); Carbon Dioxide 24 mmol/L (23-31); Chloride 106 mmol/L (98-107); Estimated GFR-MDRD Greater than 90; Glucose 101 mg/dL (83-110); Magnesium 2.1 mg/dL (1.6-2.6); Potassium 4.3 mmol/L (3.5-5.1); Sodium 137 mmol/L (136-145)
[2018-11-13] MEDS: Budesonide 0.5 MG/2 ML NEB INH SCH (06:58)
[2018-11-13 08:05] LABS: Band 24 % (5-11); Eosinophils 5 % (0-10); Lymphocytes 10 % (21-51); MDiff Complete? YES; Macrocytosis MODERATE=16-30 cells (100X) (0-5/hpf); Monocytes 8 % (0-10); Neutrophil 53 % (42-75); Ovalocytes SLIGHT = 2-5 cells (100X) (0-1/hpf); Platelet Morphology Comment Appears Decreased; Polychromasia SLIGHT = 2-3 cells (100X) (0-2/hpf)
[2018-11-13] MEDS: guaiFENesin ER 600 MG TAB PO SCH (08:44)
[2018-11-13] MEDS: Senokot S 8.6-50 MG TAB PO SCH (08:44)
[2018-11-13] MEDS: Folic Acid 1 MG TAB PO SCH (08:44)
[2018-11-13] MEDS: Metoprolol Tartrate 25 MG TAB PO SCH (08:44)
[2018-11-13] MEDS ORDERED: Polyethylene Glycol 3350 17 GM Packet PO SCH (09:00)
[2018-11-13] MEDS ORDERED: Digoxin 0.5 MG/2 ML AMP SLOW IVP SCH ×2 (11:15→18:00)
[2018-11-13 11:47] VITALS: BP 131/65; TEMP 97.7
--- NOTE | 2018-11-13 16:46 | CON ---
DATE OF CONSULTATION: 11/13/2018 INDICATION FOR CONSULTATION: A 73-year-old male with chronic atrial fibrillation, was admitted with pneumonia. He has a history of breast cancer with a right mastectomy and then he had recurrence in the right side of his chest on the sternal area, then he had a recurrence again on the left side of the sternum, and now has a possible metastatic focus in the left hip. He was admitted due to a low white blood cell count and increased risk of sepsis. This is an unfortunate, he does have a long history of atrial fibrillation, which he knows about, but has not had any complaints of chest pain. He says his chronic pain is due to his metastatic cancer. He was obviously neutropenic with a low white blood cell count and he has been in the hospital on antibiotics. We were asked to see him after he had a short run of nonsustained ventricular tachycardia. He does have the atrial fibrillation and occasionally he has some rapid ventricular response to atrial fibrillation. Otherwise, he denies any complaints. He is denying shortness of breath or chest pain at this time and with a short run of nonsustained ventricular tachycardia, would not be too concerned at this time. He said he has undergone a stress test in the past and said it was unremarkable, but we do not have those records, all of his information was from [place]. PAST MEDICAL HISTORY: His past medical history is significant for chronic atrial fibrillation, metastatic right breast cancer, which has spread now probably to the left hip. He has had a recurrence to the sternal area. He has had radiation therapy. He has a history of respiratory insufficiency and failure due to sepsis with possible bilateral pneumonia. He has chronic pain syndrome. He has a history of hyperlipidemia. He has chronic anemia due to his malignancy. He has also had obesity. He has also some problems with his electrolytes such as low sodium, hyponatremia, and hypomagnesemia. He has, by the CT scan, apparently, had a pericardial effusion. This was not really identified well by the echocardiogram , but did not appear to be significant, was obviously not symptomatic if he had one. REVIEW OF SYSTEMS: He denied any significant complaints on the review of systems. He had no nausea, vomiting, or diarrhea. No GI or complaints. Otherwise, no kidney complaints and no significant lower extremity edema and denied any chest pain. ALLERGIES: HE IS ALLERGIC TO DEMEROL AND PENICILLINS. MEDICATIONS: Present medications include; 1. Albuterol inhalers. 2. Zyloprim. 3. Tylenol. 4. Xanax. 5. Tessalon. 6. He is on a whole list of other medicines that are p.r.n. medications. 7. He is also on a Pulmicort nebulizer solution. 8. He is on Folvite. 9. Faslodex. 10. Mucinex. 11. Robitussin. 12. Cefepime. 13. Levaquin. 14. Metoprolol 25 mg b.i.d. 15. He also takes Coumadin for his atrial fibrillation. SOCIAL HISTORY: I believe he lives with his family. He has no history of alcohol or tobacco abuse. FAMILY HISTORY: Noncontributory for any early heart disease. PHYSICAL EXAMINATION: GENERAL: Reveals an elderly gentleman, somewhat overweight. He is alert and oriented, and very pleasant during the evaluation. VITAL SIGNS: His physical examination reveals a blood pressure 131/65. He is afebrile. Heart rate is in the 90s to 1 teens, O2 saturations are 95%. Respiratory rate is 18. HEENT: Reveals the head to be normocephalic and atraumatic. I did not hear any bruits. CARDIOVASCULAR: Reveals an irregular, somewhat tachycardic heart rate. He had no significant murmurs. He has a very soft systolic murmur at the apex. CHEST: His chest has few decreased breath sounds and has some scattered rhonchi. ABDOMEN: Shows obesity and nontender. Positive bowel sounds are present. No masses are palpable. EXTREMITIES: Showed no clubbing or cyanosis. I could not see any significant edema. Pedal pulses are present. NEUROLOGICAL: The patient appears to be intact. SKIN: Warm and dry. LABORATORY DATA: As noted above. IMPRESSION: 1. A 73-year-old gentleman with metastatic right breast cancer, which has metastasized to the sternum as well as to the left hip. He was to undergo chemotherapy apparently or some type of radiation today for his left hip. He is trying to change I guess his oncologist to this area since his oncologist recently and he has not been able to get back and deal with that. 2. Atrial fibrillation, which is chronic in this gentleman. He is on Coumadin. We will continue that medicine to keep an INR between 2 and 3. 3. History of nonsustained ventricular tachycardia, it is only few beats, would not be too concerned at this time. It is best to treat his malignancy since he is completely asymptomatic at this time. We will continue to follow the patient with you. 4. Bilateral pneumonia, for which he is being treated at this time with antibiotics. We will continue this. 5. Hypertension, which is under good control. 6. Hyperlipidemia. We could consider starting medications once he is in better shape. We will be more than happy to continue to follow the patient with you but at this time, from a cardiac standpoint, he actually does appear to be very stable and no further cardiac workup is indicated at this time until the patient is resolved from his pneumonia as well as all since in this in well, which should address the metastatic breast cancer before proceeding with other significant cardiac workup. The patient also was not in favor of starting anything any new workup, unless he becomes more symptomatic. Job ID: [id number] [facility]
--- NOTE | 2018-11-13 18:55 | DIS ---
DATE OF ADMISSION: 11/09/2018 DATE OF DISCHARGE: 11/13/2018 DISCHARGE DISPOSITION: Home. FOLLOWUP: Follow up with primary care physician, Dr. Johnathan Perez in [place]. ALLERGIES: THE PATIENT IS ALLERGIC TO PENICILLIN AND DEMEROL. THE PATIENT WAS SEEN AND EXAMINED ON THE DAY OF DISCHARGE. DENIES ANY NEW COMPLAINTS. NO CHEST PAIN, SHORTNESS OF BREATH, OR PALPITATIONS REPORTED. OVERALL SYMPTOMATICALLY, HE FEELS MUCH BETTER. INPATIENT CONSULTANTS: 1. Cardiology, Dr. Lewis. 2. Oncology, Dr. Santiago. BRIEF HOSPITAL COURSE: The patient is a 73-year-old male with chronic atrial fibrillation, hypertension, hyperlipidemia, and chronic anticoagulation, presented to the emergency room with productive cough along with generalized weakness. He was sent to the emergency room by oncologist. Please refer to the history and physical for further details. The patient was admitted to the hospital with a diagnosis of acute hypoxic respiratory failure secondary to bilateral pneumonia. He was started on IV cefepime along with Levaquin. His respiratory viral panel was positive for human metapneumovirus. Blood culture was negative. He was seen by Infectious Disease, Dr. Villeda and Oncology, Dr. Santiago. Due to neutropenia, he received one dose of Granix. Symptomatically, he feels much better. His WBC count on the day of discharge is 3.5. Antibiotics have been changed to p.o. On the day of discharge, he was evaluated by Cardiology, Dr. Lewis for 4 beats of nonsustained ventricular tachycardia. Dr. Lewis recommended to continue metoprolol and add digoxin. Please note that the patient declined digoxin. He will follow up with his primary surgical asst at [place]. Folic acid supplementation has been started for folic acid level of 6.4. He was advised to follow up with his primary oncologist. LABORATORY DATA: Significant labs. WBC on admission 2.3 and at discharge 3.5 with bandemia of 24 and neutrophils of 53. INR on the day of discharge 2.9. The patient was advised to take 1 mg warfarin every other day. He was advised to recheck INR in 2 to 3 days. Urine for Legionella pneumoniae and Streptococcus pneumoniae were negative. Folic acid 6.4 with vitamin B12 of 551. Echocardiogram showed left ventricular ejection fraction 50% to 55% with moderate mitral regurgitation, [id number] tricuspid regurgitation. FINAL DIAGNOSES: 1. Acute hypoxic respiratory failure/sepsis with acute organ dysfunction secondary to bilateral pneumonia, suspected pneumococcal versus viral. 2. Human metapneumovirus infection, probably causing pneumonia. 3. Nonsustained ventricular tachycardia. 4. Atrial fibrillation with rapid ventricular response. 5. Metastatic right breast malignancy followed by Oncology. 6. Chronic pain syndrome. 7. Neutropenia secondary to chemotherapy. 8. Chronic anticoagulation. 9. Lactic acidosis due to sepsis. 10. Hyperlipidemia. 11. Hyponatremia. 12. Chronic anemia. 13. Folic acid deficiency with macrocytosis. 14. Pericardial effusion on CT. However, echocardiogram did not show significant pericardial effusion. 15. Obesity with a BMI of 34. 16. Hypomagnesemia, replaced. 17. Moderate protein-calorie malnutrition. 18. Please note, the patient refused digoxin, which was recommended by Cardiology for atrial fibrillation with rapid ventricular response. He understands the risk. Total time coordinating the discharge of this patient was 38 minutes. Job ID: [id number]
[2018-11-14] MEDS ORDERED: Digoxin 0.25 MG TAB PO SCH (09:00)
[2018-11-14] MEDS ORDERED: Warfarin Sodium 2 MG TAB PO SCH (17:00)
== END 2018-11-13 12:45 | disposition home or self-care (01) | DRG 871 ==
LOC: ERS 09:54 → ERHOLD 13:07 → 2NO 18:13
PROVIDERS: ADMIT Internal Medicine; ATTEND Internal Medicine
DX: A41.9 Sepsis, unspecified organism (principal); J96.01 Acute respiratory failure with hypoxia; J13 Pneumonia due to Streptococcus pneumoniae; E87.2 Acidosis; E87.1 Hypo-osmolality and hyponatremia; I31.3 Pericardial effusion (noninflammatory); C79.51 Secondary malignant neoplasm of bone; I47.1 Supraventricular tachycardia; E44.0 Moderate protein-calorie malnutrition; I48.2 Chronic atrial fibrillation; R65.20 Severe sepsis without septic shock; C50.921 Malignant neoplasm of unspecified site of right male breast; G89.4 Chronic pain syndrome; B97.81 Human metapneumovirus as the cause of diseases classified elsewhere; D70.1 Agranulocytosis secondary to cancer chemotherapy; I10 Essential (primary) hypertension; E83.42 Hypomagnesemia; E53.8 Deficiency of other specified B group vitamins; D64.9 Anemia, unspecified; E78.5 Hyperlipidemia, unspecified; Z79.01 Long term (current) use of anticoagulants; Z79.818 Long term (current) use of other agents affecting estrogen receptors and estrogen levels; Z68.34 Body mass index [BMI] 34.0-34.9, adult; Z88.5 Allergy status to narcotic agent; Z88.0 Allergy status to penicillin
CPT/HCPCS: 36415; 71046; 71275; 80048; 80053; 82607; 82746; 83605; 83735; 83880; 84443; 84484; 85007; 85025; 85027; 85610; 85730; 87040; 87633; 87804; 87899; 93005; 93306; 94640; 94760; 96365; 96367; 96375; J0692; J1160; J1447; J1956; J3475; J7050; J7620; J7626; Q9966

== ENCOUNTER 2018-11-27 17:19 | Inpatient (IN) | payer MEDICARE ==
[2018-11-27] MEDS ORDERED: Morphine 4 MG/ML VIAL ONE ×2 (17:51→21:34)
[2018-11-27 18:11] LABS: Hemoglobin 10.7 g/dL (14.0-18.0); Mean Corpuscular HGB CONC 32.7 g/dL (32.0-36.0); Mean Corpuscular Hemoglobin 36.1 pg (27.0-31.0); Platelet Count 195 thou/uL (130-400); RBC Distribution Width 14.4 % (11.5-14.5); Red Blood Cell (RBC) Count 2.95 mill/uL (4.70-6.10); White Blood Cell (WBC) Count 3.9 thou/uL (4.8-10.8)
[2018-11-27 18:16] LABS: INR-International Normal Ratio 1.7; PTT 27.7 SEC (22.9-36.1); Prothrombin Time 20.1 SEC (12.0-14.7)
[2018-11-27 18:29] LABS: Anisocytosis SLIGHT = 6-15 cells (100X) (0-5/hpf); Band 9 % (5-11); Eosinophils 1 % (0-10); Hypochromia SLIGHT = 6-15 cells (100X) (0-5/hpf); Lymphocytes 12 % (21-51); MDiff Complete? YES; Macrocytosis SLIGHT = 6-15 cells (100X) (0-5/hpf); Monocytes 19 % (0-10); Neutrophil 59 % (42-75); Platelet Morphology Comment Appears Adequate
[2018-11-27 18:38] LABS: ALT (SGPT) 61 U/L (8-55); AST (SGOT) 76 U/L (5-34); Albumin 3.9 g/dL (3.4-4.8); Alkaline Phosphatase 65 U/L (40-150); Anion Gap 14 mmol/L (10-20); BUN (Urea Nitrogen) 23 mg/dL (8.4-25.7); Bilirubin, Total 0.5 mg/dL (0.2-1.2); Calc. Creatinine Clearance 0 mL/min (70-130); Calcium 8.9 mg/dL (7.8-10.44); Carbon Dioxide 25 mmol/L (23-31); Chloride 107 mmol/L (98-107); Estimated GFR-MDRD 67; Globulin 2.7 g/dL (2.4-3.5); Glucose 126 mg/dL (83-110); Potassium 4.2 mmol/L (3.5-5.1); Protein, Total 6.6 g/dL (5.8-8.1); Sodium 142 mmol/L (136-145)
--- NOTE | 2018-11-27 19:35 | CT ---
CT BRAIN WITHOUT CONTRAST: History: 4-werner injury. Comparison: None. FINDINGS: There is encephalomalacia of the left external capsule and insula. No acute hemorrhage or infarct. No midline shift or mass effect. Calvarium is intact. There is small volume fluid within the right maxillary sinus. Prominent nutrient foramen of the right zygoma in transverse dimension. IMPRESSION: Chronic findings. No acute post-traumatic intracranial sequellae. POS: [facility]
--- NOTE | 2018-11-27 19:37 | CT ---
CT CERVICAL SPINE WITHOUT CONTRAST: History: Altered mental status. 4-werner incident. Comparison: None. FINDINGS: The fluid in the right maxillary sinus is somewhat hyperdense measuring 30 Hounsfield units. The occipital condyles are intact. The odontoid process is intact. Advanced degenerative disease of t he atlantodental articulation. Severe facet arthropathy on the left from C2-6 and on the right at C4- 6. No acute fracture or malalignment is appreciated of the cervical spine. The spinus processes are i ntact. Moderate vascular calcifications of both carotid bulbs. No prevertebral hematoma. Extensive likely fibrosis right lung apex. IMPRESSION: No acute displaced fracture or malalignment. POS: [facility]
--- NOTE | 2018-11-27 19:41 | RAD ---
RIGHT SHOULDER THREE VIEWS: History: Injury. Comparison: None. FINDINGS: The known right sided rib fracture is not well seen. There is lung fibrosis. No acute displaced right shoulder fracture. Glenohumeral alignment is normal. IMPRESSION: No acute fracture or malalignment. POS: [facility]
--- NOTE | 2018-11-27 19:42 | RAD ---
CHEST ONE VIEW: History: Chest pain. Comparison: None. FINDINGS: Port-a-cath is in good position. Extensive lung fibrosis. Surgical clips right axilla. Multiple right sided rib fractures. IMPRESSION: Minimally displaced multiple right sided rib fractures without pneumothorax. POS: [facility]
[2018-11-27] MEDS ORDERED: Morphine 2 MG/ML SYRINGE ONE (19:47)
--- NOTE | 2018-11-27 20:54 | CT ---
CT CHEST WITH CONTRAST CT ABDOMEN WITH CONTRAST CT PELVIS WITH CONTRAST LIMITED CT OF THORACIC SPINE WITH CONTRAST LIMITED CT OF SACRAL SPINE WITH CONTRAST: HISTORY: Trauma COMPARISON: 11/09/18 FINDINGS: There is extensive scarring throughout the lungs. No pneumothorax. There are multiple calcified pleur al plaques along the right anterior hemithorax. Visualized portions of the scapula are intact as well as the clavicles. There is expansile lucency wi thin the sternum which appears relatively similar. There is a right lateral 4th rib fracture with one-half shaft width off set. Nondisplaced transversel y oriented fracture right lateral 5th rib and right posterior 5th rib. There is a one cortex width di splaced right 6th rib fracture as well as nondisplaced posterior 6th rib fracture. Nondisplaced right lateral 7th rib fracture and right posterior 8th rib fracture and right lateral 8th rib fracture. 9t h rib appears to be intact as well as the 10th, 11th, and 12th ribs. No left sided rib fractures. Thoracic and lumbar spine are without acute fracture. There is a lytic focus in the posterior L1 vertebral body with loss of normal posterior cortex of L1 which may reflect an area of metaphysis given the patient's history of cancer. No acute transverse pr ocess fracture. SI joints are intact. Right buttock soft tissue contusion is present without signific ant intramuscular hematoma. A left buttock soft tissue contusion is present without significant intra muscular hematoma. Subtle lytic focus in the left iliac wing is present with peripheral sclerosis. No acute hip fracture . The obturator rings are intact. No pubic symphyseal widening. No hepatic laceration. No splenic laceration. No evidence for pancreati c injury. No adrenal gland hematoma. No renal injury. Extensive atherosclerotic plaque throughout the aortic iliac system without aneurysmal dilatation. No dilated loops of large or small bowel. No mesenteric hematoma. The appendix is visualized and is n ormal. No paraspinal muscle hematoma. No evidence for acute aortic injury. Right paratracheal and prevascula r lymph nodes are mildly prominent. IMPRESSION: 1. Acute right sided rib fractures as described without underlying pneumothorax. No significant extra pleural hematoma. 2. Osseous metastatic disease as described. 3. No acute traumatic abnormality within the abdomen or pelvis. 4. Post radiation changes versus extrapleural hematoma or asbestos related pleural disease with a trevor cified right anterior upper lobe pleural plaque. 5. Improving pulmonary infiltrates from the comparison of 11-09-18. POS: [facility]
[2018-11-27] MEDS ORDERED: Acetaminophen 1,000 MG in Premix Bag 1 BAG IVPB SCH ×3 (21:15→23:59)
[2018-11-27] MEDS ORDERED: Sodium Chloride 0.9% 1,000 ML IV SCH (23:23)
[2018-11-27] MEDS ORDERED: Morphine 4 MG/ML VIAL SLOW IVP PRN ×2 (23:23)
[2018-11-27] MEDS ORDERED: Dextrose 50% Abboject 50 ML SYRINGE SLOW IVP PRN (23:23)
[2018-11-27] MEDS ORDERED: hydrALAZINE 20 MG/ML VIAL SLOW IVP PRN (23:23)
[2018-11-27] MEDS ORDERED: Ondansetron ODT 4 MG TAB PO PRN (23:23)
[2018-11-27] MEDS ORDERED: Dextrose 5% in Water 1,000 ML IV PRN (23:23)
[2018-11-27] MEDS ORDERED: Ondansetron PF 4 MG/2 ML Vial IVP PRN (23:23)
[2018-11-27] MEDS ORDERED: Ketorolac Tromethamine 30 MG/ML VIAL IVP SCH (23:23)
[2018-11-28] MEDS: Ketorolac Tromethamine 30 MG/ML VIAL IVP SCH ×2 (00:20→05:54)
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
[2018-11-28] MEDS ORDERED: Acetaminophen 1,000 MG in Premix Bag 1 BAG IVPB SCH (05:00)
[2018-11-28 05:04] VITALS: BMI 35.4
[2018-11-28 06:25] LABS: Anion Gap 15 mmol/L (10-20); BUN (Urea Nitrogen) 24 mg/dL (8.4-25.7); Calc. Creatinine Clearance 103 mL/min (70-130); Calcium 8.9 mg/dL (7.8-10.44); Carbon Dioxide 23 mmol/L (23-31); Chloride 107 mmol/L (98-107); Estimated GFR-MDRD 75; Glucose 154 mg/dL (83-110); Potassium 5.1 mmol/L (3.5-5.1); Sodium 140 mmol/L (136-145)
[2018-11-28 07:08] LABS: Hemoglobin 9.8 g/dL (14.0-18.0); Mean Corpuscular HGB CONC 32.4 g/dL (32.0-36.0); Mean Corpuscular Hemoglobin 36.5 pg (27.0-31.0); Platelet Count 192 thou/uL (130-400); RBC Distribution Width 14.6 % (11.5-14.5); Red Blood Cell (RBC) Count 2.69 mill/uL (4.70-6.10); White Blood Cell (WBC) Count 4.2 thou/uL (4.8-10.8)
--- NOTE | 2018-11-28 08:29 | RAD ---
AP VIEW CHEST: HISTORY: Followup chest injury. FINDINGS: AP view chest is obtained on 11/28/2018. Comparison is made to previous exam from 11/27/2018. AP view chest demonstrates a surgical clip seen in the right axillary region. Cardiomegaly is seen. There is a left subclavian MediPort catheter in place. There are diffuse interstitial markings throughout the lungs. This may represent interstitial fibrot ic changes or interstitial edema. Interstitial markings are less prominent. Part of this could be d ue to technique of the radiograph. IMPRESSION: Stable AP view chest with less prominent visualization of the interstitial markings when compared to the previous day's exam. POS: [facility]
[2018-11-28] MEDS ORDERED: Ibuprofen 600 MG TAB PO SCH (09:00)
[2018-11-28 09:03] LABS: Band 4 % (5-11); Eosinophils 1 % (0-10); Lymphocytes 20 % (21-51); MDiff Complete? YES; Macrocytosis SLIGHT = 6-15 cells (100X) (0-5/hpf); Monocytes 6 % (0-10); Neutrophil 69 % (42-75); Ovalocytes SLIGHT = 2-5 cells (100X) (0-1/hpf); Platelet Morphology Comment Appears Adequate; Polychromasia SLIGHT = 2-3 cells (100X) (0-2/hpf)
[2018-11-28] MEDS: Gabapentin 100 MG CAP PO SCH ×3 (09:17→20:48)
[2018-11-28] MEDS: HYDROcodone/Acetaminophen 10/325 mg Tablet PO PRN ×2 (09:19→15:32)
[2018-11-28 11:42] LABS: INR-International Normal Ratio 1.9; Prothrombin Time 21.7 SEC (12.0-14.7)
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
[2018-11-28] MEDS ORDERED: Milk Of Magnesia 30 ML UDCUP PO SCH (14:45)
[2018-11-28] MEDS: HYDROcodone/Acetaminophen 10/325 mg Tablet PO SCH ×3 (15:33→20:40)
[2018-11-28] MEDS ORDERED: Warfarin Sodium 2 MG TAB PO SCH (17:00)
[2018-11-28] MEDS: Allopurinol 300 MG TAB PO SCH (20:48)
[2018-11-28] MEDS: Simvastatin 20 MG TAB PO SCH (20:48)
[2018-11-28] MEDS: Senokot S 8.6-50 MG TAB PO SCH (20:48)
[2018-11-28] MEDS: Cyclobenzaprine 10 MG TAB PO PRN (20:49)
[2018-11-28] MEDS: Morphine 4 MG/ML VIAL SLOW IVP PRN (21:52)
[2018-11-29] MEDS: HYDROcodone/Acetaminophen 10/325 mg Tablet PO SCH ×4 (02:39→21:07)
[2018-11-29] MEDS: Cyclobenzaprine 10 MG TAB PO PRN (05:32)
[2018-11-29] MEDS: Morphine 4 MG/ML VIAL SLOW IVP PRN ×2 (05:33→12:06)
[2018-11-29 06:27] LABS: INR-International Normal Ratio 2.4; Prothrombin Time 25.8 SEC (12.0-14.7)
[2018-11-29] MEDS ORDERED: Gabapentin 100 MG CAP PO SCH (07:49)
[2018-11-29] MEDS ORDERED: Morphine 4 MG/ML VIAL SLOW IVP SCH (08:00)
[2018-11-29] MEDS: Folic Acid 1 MG TAB PO SCH (08:35)
[2018-11-29] MEDS: Gabapentin 300 MG CAP PO SCH ×3 (08:37→21:07)
[2018-11-29] MEDS: Polyethylene Glycol 3350 17 GM Packet PO SCH (08:37)
[2018-11-29] MEDS: Cyclobenzaprine 10 MG TAB PO SCH ×3 (08:37→21:07)
[2018-11-29] MEDS: Senokot S 8.6-50 MG TAB PO SCH ×2 (08:37→21:05)
[2018-11-29] MEDS ORDERED: cloNIDine 0.2 MG TAB PO SCH (09:00)
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
[2018-11-29] MEDS ORDERED: BIOTENE MOUTH SPRAY 44.3 ML MM PRN (16:33)
[2018-11-29] MEDS ORDERED: Warfarin Sodium 1 MG TAB PO SCH (17:00)
[2018-11-29] MEDS: cloNIDine 0.2 MG TAB PO SCH (21:06)
[2018-11-29] MEDS: Simvastatin 20 MG TAB PO SCH (21:06)
[2018-11-29] MEDS: Allopurinol 300 MG TAB PO SCH (21:06)
[2018-11-30] MEDS: HYDROcodone/Acetaminophen 10/325 mg Tablet PO SCH ×3 (03:33→14:39)
[2018-11-30 05:03] LABS: INR-International Normal Ratio 2.8; Prothrombin Time 29.4 SEC (12.0-14.7)
[2018-11-30] MEDS ORDERED: tiZANidine HCl 4 MG TAB PO SCH (05:15)
[2018-11-30] MEDS: Polyethylene Glycol 3350 17 GM Packet PO SCH (09:54)
[2018-11-30] MEDS: Senokot S 8.6-50 MG TAB PO SCH (09:56)
[2018-11-30] MEDS: Gabapentin 300 MG CAP PO SCH ×2 (09:56→14:38)
[2018-11-30] MEDS: Folic Acid 1 MG TAB PO SCH (09:57)
[2018-11-30] MEDS: cloNIDine 0.2 MG TAB PO SCH (09:58)
[2018-11-30] MEDS: Cyclobenzaprine 10 MG TAB PO SCH ×2 (09:58→14:38)
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
[2018-11-30 20:37] VITALS: BP 101/64; TEMP 97.3
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
--- NOTE | 2018-12-02 15:38 | EKG ---
Test Reason : Blood Pressure : / mmHG Vent. Rate : 133 BPM Atrial Rate : 127 BPM P-R Int : 000 ms QRS Dur : 140 ms QT Int : 358 ms P-R-T Axes : 000 001 016 degrees QTc Int : 532 ms Atrial fibrillation with rapid ventricular response Right bundle branch block Abnormal ECG Confirmed by DAVID Zheng, EUGENIO ([id number]), editorial director NARINDER NAZARIO ([id number] on 12/02/2018 3:38:23 PM Referred By: Confirmed By:EUGENIO HERNANDEZ M.D.
== END 2018-11-30 16:45 | disposition home or self-care (01) | DRG 184 ==
LOC: ERS 17:19 → SURG B 19:52 → INTOOBSV 19:52 → OBSVTOIN 11-29 18:06
PROVIDERS: ADMIT Surgery; ATTEND Surgery
DX: S22.41XA Multiple fractures of ribs, right side, initial encounter for closed fracture (principal); C79.51 Secondary malignant neoplasm of bone; C50.929 Malignant neoplasm of unspecified site of unspecified male breast; I48.91 Unspecified atrial fibrillation; E78.5 Hyperlipidemia, unspecified; I10 Essential (primary) hypertension; Z88.0 Allergy status to penicillin; Z88.8 Allergy status to other drugs, medicaments and biological substances; Z85.3 Personal history of malignant neoplasm of breast; Z98.890 Other specified postprocedural states; Z87.01 Personal history of pneumonia (recurrent); Z92.21 Personal history of antineoplastic chemotherapy; V86.59XA Driver of other special all-terrain or other off-road motor vehicle injured in nontraffic accident, initial encounter
CPT/HCPCS: 36415; 70450; 71045; 71260; 72125; 74177; 80048; 80053; 84484; 85025; 85610; 85730; 93005; 94640; 96361; 96365; 96375; 96376; J0131; J1885; J2270; J7620

== ENCOUNTER 2018-12-28 11:11 | Outpatient (CLI) | payer MEDICARE ==
--- NOTE | 2018-12-28 13:03 | RAD ---
PA CHEST RADIOGRAPH WITH 2 VIEWS RIGHT RIBS: Date: 12/28/18 PROVIDED CLINICAL HISTORY: Rib fractures. FINDINGS: Comparison made with the examination performed 11/28/18. Correlation made with CT examination of 11/10 04/30. Cardiac and mediastinal silhouette is unchanged in appearance. Left-sided implanted port is again see n in similar position. No focal consolidation, pleural fluid, or pneumothorax apparent. Interval deve lopment of extensive displaced right-sided rib fractures involving the right 2nd, 3rd, 4th, 5th, 6th, and 7th ribs posteriorly. Rib fractures involving multiple lateral lower ribs are now displaced and are probably the same rib fractures that were seen on prior CT examination. IMPRESSION: Interval development of multiple new displaced right-sided rib fractures without evidence for pneumot horax. Interval displacement of previously described lower lateral rib fractures. POS: [facility]
== END 2018-12-28 11:12 | disposition home or self-care (01) ==
LOC: SCSRAD 11:11
PROVIDERS: ATTEND Family Medicine
DX: S22.41XS Multiple fractures of ribs, right side, sequela (principal); S22.41XA Multiple fractures of ribs, right side, initial encounter for closed fracture

== ENCOUNTER 2019-01-12 07:44 | Outpatient (CLI) | payer MEDICARE, OTHER ==
--- NOTE | 2019-01-12 12:08 | PET ---
Exam: PET CT SKULL TO MID THIGH: COMPARISON: None. HISTORY: Breast cancer. TECHNIQUE: A PET/CT was performed from the skull to the mid thigh after administration of 12.6 millicuries of F- 18 FDG. Evaluation was performed on a [employer] workstation. FINDINGS: NECK: No areas of hypermetabolic activity. CHEST: No areas of hypermetabolic activity. ABDOMEN/PELVIS: No areas of hypermetabolic activity. SKELETON: There is a hypermetabolic lesion with associated osseous destruction of the left ilium, with SUV of 4.9. CT images used for attenuation correction show diffuse interstitial and bronchovascular distribution of opacities throughout each lung with associated pleural thickening and irregularity. This may relate to component of acute on chronic interstitial lung disease. The possibility of malignancy luis ot be excluded. Correlate clinically. There are numerous right-sided posttraumatic rib deformities with increased metabolic activity, seamus tible with sequela from prior injury. Correlate with history. Postoperative right mastectomy with associated metallic clips near the right axilla. IMPRESSION: Lytic hypermetabolic osseous lesion of the left ilium compatible with metastatic disease. Transcribed Date/Time: 01/12/2019 12:39 PM
== END 2019-01-12 07:45 | disposition home or self-care (01) ==
LOC: PET 07:44
PROVIDERS: ATTEND Internal Medicine Hematology & Oncology
DX: C50.929 Malignant neoplasm of unspecified site of unspecified male breast (principal); C79.51 Secondary malignant neoplasm of bone
CPT/HCPCS: 78815; A9552

== ENCOUNTER 2019-04-05 07:35 | Outpatient (CLI) | payer MEDICARE, OTHER ==
--- NOTE | 2019-04-05 09:10 | PET ---
EXAM: PET CT skull to mid thigh COMPARISON: 01/12/2019 HISTORY: Right breast cancer with bony metastases TECHNIQUE: A PET/CT was performed from the skull to the mid thigh after administration of 12.3 millic uries of F-18 FDG. Evaluation was performed on a [employer] workstation. FINDINGS: NECK: No areas of suspicious hypermetabolic activity. Symmetric hypermetabolic activity seen within b oth parotid glands. CHEST: No areas of hypermetabolic activity ABDOMEN/PELVIS: No areas of hypermetabolic activity SKELETON: No suspicious areas of hypermetabolic activity. The previously seen hypermetabolic activity in the left iliac crest is no longer hypermetabolic with a maximum SUV value of 2.1. Hypermetabolic activity is seen in both shoulder joints, right greater than left which may be seconda ry to an inflammatory arthropathy. CT images used for attenuation correction show multiple right rib fractures. Atherosclerotic calcific ations are seen in the aorta. There is a left-sided Mediport with its tip in the superior vena cava. The patient is status post right mastectomy.. IMPRESSION: No evidence of residual disease on the current examination.
== END 2019-04-05 07:36 | disposition home or self-care (01) ==
LOC: PET 07:35
PROVIDERS: ATTEND Internal Medicine Hematology & Oncology
DX: C50.921 Malignant neoplasm of unspecified site of right male breast (principal); C79.51 Secondary malignant neoplasm of bone
CPT/HCPCS: 78815; A9552

== ENCOUNTER 2019-05-28 08:01 | Outpatient (CLI) | payer MEDICARE, OTHER ==
--- NOTE | 2019-05-28 10:57 | HP ---
HISTORY OF PRESENT ILLNESS: Mr. Ángel Loaiza is a very pleasant 74-year-old gentleman, who presents [facility] for evaluation of 2 ulcerations of the right lower leg. The patient states that at the end of October or beginning of November of this year, he developed erythema, edema, and itching of his right and left lower extremities. He states that over his right lower leg, he developed a blister which "broke." He states that the resulting wound was slow to heal. He states that he has hyperpigmentation of the right lower leg in the region of the healed wound. The patient states that the two wounds now present, developed in a similar fashion. The patient was placed on p.o. antibiotics by Dr. Lau. The patient was referred to the [facility]ound [facility] by Dr. Lau on 05/01/2019. PAST MEDICAL HISTORY: 1. Chronic atrial fibrillation. 2. Metastatic right breast carcinoma, status post radiation therapy. The patient has also received chemotherapy. 3. History of hypertension. 4. Anemia. 5. Gout. 6. Arthritis. PAST SURGICAL HISTORY: 1. Right mastectomy. 2. Left wrist surgery. 3. Surgery for lesion of skin of right wrist. 4. Tonsillectomy. 5. Sternal biopsy x2. MEDICATIONS: 1. Lasix. 2. Coumadin. 3. Lovastatin. 4. Metoprolol. 5. Allopurinol. 6. Ibrance. 7. Mupirocin 2% ointment. 8. Clindamycin. 9. Methylprednisolone. ALLERGIES: PENICILLIN, DEMEROL. SOCIAL HISTORY: Social history is significant for tobacco use of 1 pack of cigarettes per day for approximately 20 years. The patient states that he stopped smoking in 1978. The patient admits to the consumption of approximately 2 drinks per day "all my life since I was old enough to drink." FAMILY HISTORY: Unknown. PHYSICAL EXAMINATION: VITAL SIGNS: Temperature 97.7, pulse 141, respirations 20, blood pressure 146/63. GENERAL: A 74-year-old gentleman, sitting on table in examination room, in no acute distress. HEENT: Normocephalic and atraumatic. NECK: No nuchal rigidity. CHEST: Clear to auscultation. CV: Irregular. ABDOMEN: Soft. EXTREMITIES: Two ulcerations of the right lower leg are present, which measures approximately 1.2 x 1.2 cm and 0.8 x 0.6 cm. Granulation tissue is present within the margins of each wound. No purulent drainage is associated with either wound. Slight erythema of the skin surrounding each wound is present. No maceration of the skin of the periwound of either wound is noted. A dorsalis pedis pulse is faintly palpable on the right. A dorsalis pedis pulse is easily palpable on the left. [id number] edema of the right and left feet and lower legs is present on exam today. Numerous varicosities are also present over the right and left feet and lower legs. ASSESSMENT AND PLAN: 1. Varicose veins with ulcers and inflammation. The healing of the ulcerations may also be compromised by arterial insufficiency of the right lower extremity. The patient declines workup for peripheral vascular disease of the right lower extremity. Dressing changes of Xeroform gauze, followed by Mepilex border will be initiated today for both ulcerations of the right lower leg. These dressing changes are to be performed 3 times per week after cleansing and irrigation with the assistance of a family member. Arrangements will be made for the home delivery of dressing supplies. Arrangements will also be made for the home delivery of wraparound compression. The patient declines referral for evaluation for venous ablation. He also declines a prescription for compression garments and in-home lymphedema therapy with a pneumatic pump. The patient understands and is in agreement with the preceding treatment plan. I will see Mr. Loaiza again in 1 to 2 weeks. The patient is to continue p.o. antibiotics as prescribed by Dr. Lua. 2. Chronic atrial fibrillation. The patient is currently taking Coumadin. 3. Metastatic right breast carcinoma. 4. History of hypertension. 5. Anemia. 6. Gout. 7. Arthritis. Job ID: [id number]
== END 2019-05-28 08:02 | disposition home or self-care (01) ==
LOC: WCC 08:01
PROVIDERS: ATTEND Family Medicine
DX: I83.218 Varicose veins of right lower extremity with both ulcer of other part of lower extremity and inflammation (principal); C79.81 Secondary malignant neoplasm of breast; I48.91 Unspecified atrial fibrillation; I10 Essential (primary) hypertension; D64.9 Anemia, unspecified; M10.9 Gout, unspecified; M19.90 Unspecified osteoarthritis, unspecified site

== ENCOUNTER 2019-06-08 11:42 | Outpatient (CLI) | payer MEDICARE, OTHER ==
--- NOTE | 2019-06-08 14:27 | MRI ---
MR of the left hip without contrast Indication: History of breast cancer with osseous metastatic disease with low back pain that radiates to the left hip for one year COMPARISON: Prior CT the chest, abdomen and pelvis dated November 27, 2018 FINDINGS: The known osseous metastatic lesion involving the anterior left iliac wing is seen on today's examina tion as diminished T1 and T2 hyperintensity lesion within the bone marrow space of the anterior left iliac wing measuring as a conglomerate approximately 7.9 cm x 9.6 mm. There is no evidence to pathologic fracture. There is some reactive edema seen within the adjacent left iliacus musculature. There is some diffuse increased T2 signal involving the abductor musculature of the left hip suspicious for changes of diffuse muscular strain or myositis. There is some mild trochanteric bursitis present. The rectus femoris and hamstring origins appear within normal limits. No pathologic ally enlarged lymph node is grossly evident. There is mild to moderate degenerative change of a left hip with degenerative fraying of the superior acetabular labrum. There is some labral ossicles t hat have developmental on the posterior superior and posterior margin of the left hip. There is degenerative subchondral cyst-like abnormality seen along the SI joints bilaterally. No joint effusio n is evident. IMPRESSION: 1. Osseous metastatic disease to the left anterior iliac wing. There is no evidence to suggest pathol ogic fracture. 2. 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 3. Some areas of muscular edema involving the abductor musculature of the left hip diffusely is suspi cious for changes of the abductor muscular strain or myositis. 3. Degenerative changes of both SI joints. Transcribed Date/Time: 06/08/2019 3:55 PM
--- NOTE | 2019-06-08 14:38 | MRI ---
MRI of the lumbar spine without contrast: 06/03/2019 COMPARISON: None HISTORY: Low back pain, history of breast cancer with osseous metastatic disease TECHNIQUE: Multiplanar multisequence MR imaging of the lumbar spine without contrast FINDINGS: The STIR imaging demonstrates a lobulated complex primarily hyperintense lesion within the posterior aspect of the L1 vertebral body measuring 1.8 x 1.3 x 1.8 cm. It is not completely evaluated on this examination but given the patient's history of osseous metastatic disease, this is suspicious for a metastatic focus. The posterior cortex appears intact. Seen only on STIR imaging is a 1.7 cm hyperintense STIR focus of the right iliac bone, most consisten t with an osseous metastatic lesion as well. On the basis of 5 lumbar type vertebral bodies, conus medullaris terminates at L1. T12-L1: There is mild bilateral facet hypertrophy with mild anterior osteophyte formation. No signifi cant central canal or neural foraminal stenosis is noted. L1-2: Mild bilateral facet hypertrophy. Mild disc space narrowing. No significant central canal or ne ural foraminal stenosis. L2-3: There is disc space narrowing and disc desiccation with mild disc bulge and mild bilateral face t hypertrophy. No significant central canal or neural foraminal stenosis. L3-4: There is disc space narrowing with disc desiccation and mild disc bulge. Mild bilateral facet h ypertrophy. No significant central canal or neural foraminal stenosis. L4-5: Intervertebral disc height and signal intensity is within normal limits. There is bilateral fac et hypertrophy and hypertrophy of the ligamentum flavum. No significant central canal or neural foraminal stenosis. L5-S1: There is disc desiccation and vacuum disc formation with bilateral facet hypertrophy, right gr eater than left. No significant central canal or neural foraminal stenosis. The visualized retroperitoneal structures demonstrate no acute findings. IMPRESSION: Degenerative change within the lumbar spine with no significant central canal or neural f oraminal stenosis. L1 vertebral body lesion suspicious for osseous metastatic disease given history of breast cancer wit h osseous metastatic disease. As this lesion was not FDG avid on recent PET/CT, this suggests a treated metastatic focus. In addition, a partially visualized hyperintense lesion is noted within the posterior right iliac bone measuring 1.7 cm, also not FDG avid on recent PET scan, also suggesting a treated osseous metastatic lesion.
== END 2019-06-08 11:43 | disposition home or self-care (01) ==
LOC: SCSMRI 11:42
PROVIDERS: ATTEND Internal Medicine Hematology & Oncology
DX: C79.51 Secondary malignant neoplasm of bone (principal); C50.929 Malignant neoplasm of unspecified site of unspecified male breast; M54.5 Low back pain; M25.552 Pain in left hip; M47.816 Spondylosis without myelopathy or radiculopathy, lumbar region; M16.12 Unilateral primary osteoarthritis, left hip; M53.3 Sacrococcygeal disorders, not elsewhere classified; R60.0 Localized edema
CPT/HCPCS: 72148

== ENCOUNTER 2019-06-26 13:49 | Outpatient (CLI) | payer MEDICARE, OTHER ==
--- NOTE | 2019-06-26 15:45 | PET ---
Radionucleotide PET with CT attenuation correction HISTORY: Right breast cancer upper inner quadrant. COMPARISON: 04/05/2019. FINDINGS: Physiologic uptake throughout the enteric system and along each urinary tract. Physiologic muscular uptake also evident around the shoulders. At the left iliac crest, no abnormal uptake is evident on today's exam. No new areas of hypermetaboli c activity. Old right rib fractures. Prominent calcification throughout the arterial structures. IMPRESSION: No evidence of recurrent metastatic disease. Atherosclerosis.
== END 2019-06-26 13:50 | disposition home or self-care (01) ==
LOC: PET 13:49
PROVIDERS: ATTEND Internal Medicine Hematology & Oncology
DX: C79.51 Secondary malignant neoplasm of bone (principal); C50.221 Malignant neoplasm of upper-inner quadrant of right male breast; I70.0 Atherosclerosis of aorta
CPT/HCPCS: 78815; A9552

== ENCOUNTER 2019-09-20 11:17 | Outpatient (CLI) | payer MEDICARE, OTHER ==
--- NOTE | 2019-09-20 14:30 | PET ---
Radionucleotide PET scan with CT attenuation correction HISTORY: Right breast cancer upper inner quadrant. Restaging. COMPARISON: 06/26/2019. FINDINGS: Physiologic uptake of radiotracer throughout the enteric system and along each urinary trac t. Muscular uptake again demonstrated about the right shoulder. Old right rib fractures noted. At the left posterior aspect of the upper sternum, a subtle sclerotic lesion now shows hypermetabolic activity maximum SUV 5.0. Within the posterior aspect of the left iliac bone adjacent to the sacroiliac joint, a focus of metab olic activity shows maximum SUV 5.3 (previously 2.3). A subtle sclerotic focus at the posterior aspect of the right iliac bone adjacent to the sacroiliac j oint shows maximum SUV is 2.3 (previously 2.0). Technically, this remains sub-hypermetabolic. IMPRESSION: New hypermetabolic lesions involving the left iliac bone and sternum. A sclerotic lesion of the right iliac bone remains just sub-hypermetabolic.
== END 2019-09-20 11:18 | disposition home or self-care (01) ==
LOC: PET 11:17
PROVIDERS: ATTEND Internal Medicine Hematology & Oncology
DX: C50.221 Malignant neoplasm of upper-inner quadrant of right male breast (principal); C79.51 Secondary malignant neoplasm of bone
CPT/HCPCS: 78815; A9552; 36415; 85610

== ENCOUNTER 2019-12-13 09:31 | Outpatient (CLI) | payer MEDICARE, OTHER ==
--- NOTE | 2019-12-13 13:24 | PET ---
Radionucleotide PET scan with CT attenuation correction HISTORY: Malignant neoplasm upper inner quadrant right male breast with osseous metastases. Restaging . COMPARISON: 09/20/2019. FINDINGS: Physiologic uptake of radiotracer is present throughout the enteric system and elongated ur inary tract. A hypermetabolic sclerotic lesion involving the upper sternal body now shows maximum SUV 4.1 (previously 5.0). No hypermetabolic activity remains at the posterior aspect of the left iliac bone, where a hypermetab olic lesion was present on the prior study. Better demonstrated on today's exam is a small area of increased uptake involving the right inferior pubic ramus, max SUV 4.6 (previously 3.8). Subtle uptake associated with a large osteophyte to the right side of the L3-4 vertebral bodies is fa vored to be related to degenerative changes. Allowing for retrospective visualization of the right ischial lesion, no new abnormalities are eviden t on today's exam. Nondiagnostic CT attenuation correction images again show postoperative changes of the right breast a nd axilla. Prominent calcification throughout the arterial structures. Old right rib fractures are again demonstrated. Extensive scarring throughout each lung. IMPRESSION : Slight interval improvement in scintigraphic evidence of osseous metastases, with resolution of the l eft iliac bone lesion. Sternal and right ischial lesions are stable.
== END 2019-12-13 09:32 | disposition home or self-care (01) ==
LOC: PET 09:31
PROVIDERS: ATTEND Internal Medicine Hematology & Oncology
DX: C50.221 Malignant neoplasm of upper-inner quadrant of right male breast (principal); C79.51 Secondary malignant neoplasm of bone; M89.9 Disorder of bone, unspecified
CPT/HCPCS: 78815; A9552

== ENCOUNTER 2020-03-07 08:53 | Outpatient (CLI) | payer MEDICARE, OTHER ==
--- NOTE | 2020-03-07 16:55 | PET ---
PET CT: 03/07/20 HISTORY: 74-year-old male with malignant neoplasm of upper inner quadrant of right male breast. Secondary gerardo gnant neoplasm of bone. Breast cancer with bone mets. Exam requested to evaluate response to treatmen t and subsequent therapy management decisions. TECHNIQUE: PET scan with CT attenuation correction was preformed from the base of the brain to the proximal thig hs following intravenous administration of 11.3 millicuries [id number]. COMPARISON: 12/13/19. FINDINGS: Increased uptake in the body of the sternum is again seen with an SUV of 5.3 (previously 4.1). In the area of increased uptake in the inferior right pubic ramus is larger compared to the previous study with an SUV of 6.1 (previously 4.3). No new osseous lesions are seen. No hypermetabolism is seen in the neck, chest, axillae, abdomen or pelvis. No hypermetabolic pulmonar y nodules, liver or adrenal lesions are seen. There is physiologic uptake in the GI and tracts and the visualized portions of the brain. The CT scan used for attenuation correction demonstrates new small bilateral pleural effusions, right slightly larger than the left. No ascites is seen. Old right hip fractures are redemonstrated. Exten sive scarring in the lungs again seen. IMPRESSION: 1. New small bilateral pleural effusions. 2. Sternal and right inferior pubic ramus lesions demonstrate mild interval worsening. POS: [facility]
== END 2020-03-07 08:54 | disposition home or self-care (01) ==
LOC: PET 08:53
PROVIDERS: ATTEND Internal Medicine Hematology & Oncology
DX: C50.221 Malignant neoplasm of upper-inner quadrant of right male breast (principal); C79.51 Secondary malignant neoplasm of bone; J90 Pleural effusion, not elsewhere classified; M89.9 Disorder of bone, unspecified
CPT/HCPCS: 78815; A9552

== ENCOUNTER 2020-05-30 09:06 | Outpatient (CLI) | payer MEDICARE, OTHER ==
--- NOTE | 2020-05-30 14:35 | PET ---
PET CT: 05/30/20 HISTORY: 75-year-old male with malignant neoplasm of the upper inner quadrant of the right male breast. Second bhupendra malignant neoplasm of bone. Patient is undergoing radiation therapy to the right inferior pubic r amus. Exam was requested for evaluating response to treatment and subsequently management decisions. TECHNIQUE: PET scan with CT attenuation correction was performed from the base of the brain through the proximal thighs following the intravenous administration of 12 millicuries of 15-fluorodeoxyglucose in the le ft antecubital fossa. COMPARISON: PET CT of 03/07/20. There is continued hypermetabolic activity in the sternum with an SUV of 6.8 (previously 5.3). There is also continued increased uptake in the right inferior pubic ramus with current SUV of 4.2 (previo usly 6.1). There is a focally increased uptake in the posterior aspect of the L1 vertebral body in the region of focal sclerosis with an SUV of 4.1. There is also mildly increased uptake in the region of the scler otic focus in the right posterior iliac bone with an SUV of 2.7. These are new lesions. No h[place] hypermetabolism is seen in the neck, chest, axillae, abdomen or pelvis. No hypermetabolic pu lmonary nodules, liver, or adrenal lesions are seen. There is physiologic uptake in the GI and tracts and the visualized portions of the brain. The CT scan used for attenuation correction demonstrates no evidence of pleural effusions or ascites. Old right hip fractures are redemonstrated. There is continued scarring in the lungs. IMPRESSION: Osseous metastatic disease with mixed response to therapy since 03/07/2020. POS: [facility]
== END 2020-05-30 09:07 | disposition home or self-care (01) ==
LOC: PET 09:06
PROVIDERS: ATTEND Internal Medicine Hematology & Oncology
DX: C50.221 Malignant neoplasm of upper-inner quadrant of right male breast (principal); C79.51 Secondary malignant neoplasm of bone
CPT/HCPCS: 78815; A9552

== ENCOUNTER 2020-08-05 09:44 | Outpatient (CLI) | payer MEDICARE, OTHER ==
--- NOTE | 2020-08-05 12:24 | PET ---
Nuclear medicine FDG PET/CT: (Positron emission tomography and computed tomography) DATE: 08/05/2020 HISTORY: 75-year-old male with malignant neoplasm of upper inner quadrant of right male breast. No secondary m alignant neoplasm of bone. Restaging. Evaluate for progression of disease. Status post chemotherapy, plus right inferior pubic ramus radiotherapy. COMPARISON: 05/30/2020 TECHNIQUE: IV injection of F-18 fluorodeoxyglucose (FDG) dose: 10.9 mCi. PET scan and attenuation correction CT performed from skull base to proximal thighs. FINDINGS: SUV (standard uptake values) numbers given are maximum SUVs. QCLR used. No suspicious hypermetabolic activity involving soft tissues of neck, thoracic cavity, abdominal cavi ty, or pelvic cavity. Mixed osteoblastic and osteolytic metastatic lesion at upper sternal body: Current SUV 5.7. Previous SUV 6.8. Right posterior L1 vertebral body lesion: Current SUV 4.1. Previous SUV also 4.1. Small, approximately 2 x 0.8 cm subtle patch of sclerosis at left iliac bone abutting the left SI delmer nt with current SUV of 2.7. Previous SUV 1.7, not hypermetabolic. Approximately 2 x 1 cm densely osteoblastic lesion at posterior aspect of right iliac bone: Current S UV 2.5. Previous SUV 2.7. Subtle small focal sclerotic lesion at left lower-mid sacral ala laterally: Current SUV 3.4. Previous ly not hypermetabolic, SUV 1.7. Small, ill-defined sclerotic lesion at right inferior ramus: Current SUV 2.5. Previous SUV 4.2. A new band of intracardiac increased uptake located to the left of the aortic root, at junction with superior border of left ventricle, with SUV of 9.1. Etiology and significance uncertain. Nondiagnostic attenuation correction CT images again demonstrate multiple right lateral and right pos terior old rib fracture deformities, without hypermetabolic activity. Chronic interstitial lung changes diffusely bilaterally. Bilateral pleural thickening, right greater than left. Multiple soft tissue lesions in the posterior subcutaneous fat superficial to the bilateral gluteal m uscles, unchanged, perhaps representing fat necrosis or scars from multiple prior injections? IMPRESSION: 1) mixed response to therapy: Improvement in some of the skeletal metastatic lesions, but worsening o f others. 2) the improved lesions are at the sternum, right posterior ilium, and right inferior ramus. 3) the worsened lesions are at the left ilium, and left lateral mid-lower sacral ala. 4) the L1 vertebral body lesion is unchanged. 5) new region of increased uptake in the heart, of uncertain etiology and clinical significance.
== END 2020-08-05 09:45 | disposition home or self-care (01) ==
LOC: PET 09:44
PROVIDERS: ATTEND Internal Medicine Hematology & Oncology
DX: C50.221 Malignant neoplasm of upper-inner quadrant of right male breast (principal); C79.51 Secondary malignant neoplasm of bone; M89.9 Disorder of bone, unspecified
CPT/HCPCS: 78815; A9552

== ENCOUNTER 2020-10-09 08:24 | Day surgery (SDC) | payer MEDICARE, OTHER ==
[2020-10-09] MEDS ORDERED: Acetaminophen 500 MG TAB PO PRN (09:01)
[2020-10-09] MEDS ORDERED: diphenhydrAMINE 25 MG CAP PO PRN (09:01)
[2020-10-09] MEDS ORDERED: Sodium Chloride 0.9% 20 ML ONE (11:56)
[2020-10-09 12:09] VITALS: BP 153/70; TEMP 97.9
[2020-10-09 12:50] LABS: #Eosinphils 0.1 thou/uL (0.0-0.7); #Lymphocytes 0.4 thou/uL (1.20-3.40); #Monocytes 0.2 thou/uL (0.11-0.59); %Basophils 1.1 % (0.0-1.0); %Eosinophils 5.3 % (0.0-10.0); %Lymphocytes 21.1 % (21.0-51.0); %Neutrophils 58.5 % (42.0-75.0); Anisocytosis SLIGHT = 6-15 cells (100X) (0-5/hpf); Band 37 % (5-11); Eosinophils 4 % (0-10); Hemoglobin 8.5 g/dL (14.0-18.0); Lymphocytes 9 % (21-51); MDiff Complete? YES; Macrocytosis MODERATE=16-30 cells (100X) (0-5/hpf); Mean Corpuscular HGB CONC 33.4 g/dL (32.0-36.0); Mean Corpuscular Hemoglobin 36.9 pg (27.0-31.0); Mean Platelet Volume 8.5 fL (7.4-10.4); Monocytes 15 % (0-10); Neutrophil 32 % (42-75); Ovalocytes SLIGHT = 2-5 cells (100X) (0-1/hpf); Platelet Count 87 thou/uL (130-400); Platelet Morphology Comment Appears Decreased; Polychromasia SLIGHT = 2-3 cells (100X) (0-2/hpf); RBC Distribution Width 17.3 % (11.5-14.5); Reactive Lymphocytes 3 % (0-10); Reflex for Review?? NO; Tear Drops SLIGHT = 2-5 cells (100X) (0-1/hpf); White Blood Cell (WBC) Count 1.7 thou/uL (4.8-10.8)
== END 2020-10-09 12:10 | disposition home or self-care (01) ==
LOC: ONC/OP 08:24
PROVIDERS: ATTEND Internal Medicine Hematology & Oncology
PROC: 30233N1 Transfusion of Nonautologous Red Blood Cells into Peripheral Vein, Percutaneous Approach (ICD-10-PCS; principal; 2020-10-09)
DX: D64.9 Anemia, unspecified (principal); Z88.0 Allergy status to penicillin; Z88.5 Allergy status to narcotic agent
CPT/HCPCS: 36430; 36591; 85025; 86850; 86900; 86901; J1642; P9016; Q0163

== ENCOUNTER 2021-02-16 13:20 | Outpatient (CLI) | payer MEDICARE, OTHER | END 2021-02-16 13:21 | disposition home or self-care (01) | LOC: ULT 13:20 | PROVIDERS: ATTEND Family Medicine | DX: I48.91 Unspecified atrial fibrillation (principal); I08.8 Other rheumatic multiple valve diseases | CPT/HCPCS: 93306 ==

== ENCOUNTER 2021-03-19 09:59 | Outpatient (CLI) | payer MEDICARE, OTHER | END 2021-03-19 10:00 | disposition home or self-care (01) | LOC: BICULT 09:59 | PROVIDERS: ATTEND Family Medicine | DX: R10.11 Right upper quadrant pain (principal); K76.0 Fatty (change of) liver, not elsewhere classified | CPT/HCPCS: 93975 ==

== ENCOUNTER 2021-10-08 00:08 | Inpatient (IN) | payer MEDICARE, OTHER ==
[2021-10-08] MEDS ORDERED: Calcium Chloride 1 GM/10 ML Abboject SYRINGE ONE (00:10)
[2021-10-08] MEDS ORDERED: EPINEPHrine 1 MG/10 ML Abboject SYRINGE ONE ×2 (00:10→10:08)
[2021-10-08] MEDS ORDERED: Fentanyl 100 MCG/2 ML VIAL ONE (00:26)
[2021-10-08 00:35] LABS: #Eosinphils 0.1 thou/uL (0.0-0.7); #Lymphocytes 1.8 thou/uL (1.20-3.40); #Monocytes 0.5 thou/uL (0.11-0.59); %Basophils 0.4 % (0.0-1.0); %Eosinophils 0.9 % (0.0-10.0); %Lymphocytes 21.4 % (21.0-51.0); %Neutrophils 71.4 % (42.0-75.0); Mean Corpuscular HGB CONC 29.4 g/dL (32.0-36.0); Mean Corpuscular Hemoglobin 35.6 pg (27.0-31.0); Mean Platelet Volume 10.2 fL (7.4-10.4); Platelet Count 114 thou/uL (130-400); RBC Distribution Width 17.3 % (11.5-14.5); Red Blood Cell (RBC) Count 3.38 mill/uL (4.70-6.10); White Blood Cell (WBC) Count 8.5 thou/uL (4.8-10.8)
[2021-10-08] MEDS ORDERED: Norepinephrine 8 MG/0.9% NS 250 ML ONE (00:50)
[2021-10-08 00:52] LABS: Bacteria/HPF None Seen HPF (None Seen); Bilirubin Negative (Negative); Blood, Urine 2+ (Negative); Clarity Clear (Clear); Glucose, Urine (Dipstick) Greater than 1000 mg/dL (Negative); Ketone, Urine Negative (Negative); Leukocyte Negative Leu/uL (Negative); Nitrite Negative (Negative); Protein, Urine (Dipstick) 20 mg/dL (Neg-Trace); Renal Epithelial 0-3 HPF (None Seen); Specific Gravity, Urine 1.023 (1.002-1.036); Squamous Epithelial 0-3 HPF (0-3); Urobilinogen Normal mg/dL (Less than 2)
[2021-10-08 00:55] LABS: ALT (SGPT) 445 U/L (8-55); AST (SGOT) 595 U/L (5-34); Albumin 3.9 g/dL (3.4-4.8); Alkaline Phosphatase 176 U/L (40-110); Anion Gap 37 mmol/L (10-20); BUN (Urea Nitrogen) 99 mg/dL (8.4-25.7); Bilirubin, Total 0.7 mg/dL (0.2-1.2); Calc. Creatinine Clearance 0 mL/min (70-130); Carbon Dioxide 10 mmol/L (23-31); Chloride 89 mmol/L (98-107); Globulin 2.9 g/dL (2.4-3.5); Potassium 6.4 mmol/L (3.5-5.1); Protein, Total 6.8 g/dL (5.8-8.1); Sodium 130 mmol/L (136-145)
[2021-10-08 01:11] LABS: PTT 36.6 sec (22.9-36.1); Prothrombin Time 41.2 sec (12.0-14.7)
[2021-10-08 01:12] LABS: Actual Bicarbonate (HCO3a) 7.3 mEq/L (22-28); Analyzer IN Cardio ER; Base Excess (BEa) -22.1 mEq/L (-2.0 to +3.0); CO2 Tension 27.7 mmHg (35.0-45.0); Carboxyhemoglobin (COHb) 0.3 gm% (0.0-3.0); Hemoglobin (Hb) 11.7 g/dL (14.0-18.0); Potassium - ABG Lab 6.81 mmol/L (3.70-5.30)
[2021-10-08 01:13] LABS: INR-International Normal Ratio 4.2
[2021-10-08 01:14] LABS: Glucose 1521 mg/dL (83-110)
[2021-10-08] MEDS ORDERED: INSULIN REGULAR IN 0.9 % NACL 100 UNIT/100 ML BAG ONE (01:18)
[2021-10-08 01:38] LABS: pH, Arterial 7.04 (7.35-7.45)
[2021-10-08 01:39] LABS: ALV-art Gradient 161.875 mmHg (0-20); O2 Tension (PaO2), arterial 516.5 mmHg (> 70.0); Puncture Site LFA
[2021-10-08 01:48] LABS: SARS-CoV-2 NAA Rapid Test Not Detected (NotDetected)
[2021-10-08 01:52] LABS: CKMB 11.2 ng/mL (0-6.6)
[2021-10-08] MEDS ORDERED: Ondansetron PF 4 MG/2 ML Vial IVP PRN (02:13)
[2021-10-08] MEDS ORDERED: Electrolyte Replacement Protocol 1 EACH IVPB PRN (02:14)
[2021-10-08] MEDS ORDERED: NS 0.9% w/ 20 MEQ KCL 1,000 ML IV PRN ×2 (02:14)
[2021-10-08] MEDS ORDERED: Dextrose 5 %-0.45 % NaCl 1,000 ML IV PRN (02:14)
[2021-10-08] MEDS ORDERED: Sodium Chloride 0.9% 1,000 ML IV PRN ×4 (02:14)
[2021-10-08] MEDS ORDERED: D5 1/2 NS w/20 mEq KCL 1,000 ML IV PRN (02:14)
[2021-10-08] MEDS ORDERED: Nitroglycerin 50 MG/250 ML BOT 250 ML IVPB PRN (02:17)
[2021-10-08] MEDS ORDERED: Propofol BOLUS 1,000 MG/100 ML VIAL IV PRN (02:30)
[2021-10-08] MEDS ORDERED: Lorazepam 2 MG/ML VIAL SLOW IVP PRN (02:30)
[2021-10-08] MEDS ORDERED: Fentanyl BOLUS 250 ML IVPB PRN (02:30)
[2021-10-08] MEDS ORDERED: fentaNYL Citrate/PF 2,000 MCG in Sodium Chloride 0.9% 60 ML IV SCH (02:30)
[2021-10-08] MEDS ORDERED: Ventilator Sedation Protocol 1 EACH FS SCH (02:30)
[2021-10-08] MEDS ORDERED: DISCONTINUE PREVIOUS NARCOTIC PAIN MEDICATIONS AND BENZODIAZEPINES FS SCH (02:30)
[2021-10-08] MEDS ORDERED: Morphine 2 MG/ML VIAL SLOW IVP PRN (02:30)
[2021-10-08] MEDS ORDERED: Propofol 1,000 MG/100 ML VIAL IV PRN (02:30)
[2021-10-08] MEDS ORDERED: HUMULIN R 100 UNITS in Sodium Chloride 0.9% 100 ML IVPB SCH (02:45)
[2021-10-08] MEDS ORDERED: Sodium Bicarb 50 MEQ/50 ML Abboject 8.4% SYRINGE IVP SCH ×2 (02:45→05:00)
[2021-10-08] MEDS ORDERED: Amiodarone 450 MG in Dextrose 5% in Water 250 ML IVPB SCH (02:45)
[2021-10-08 03:07] VITALS: BMI 31.2
[2021-10-08 03:55] LABS: Band 15 % (5-11); Hemoglobin 9.1 g/dL (14.0-18.0); Hypochromia SLIGHT = 6-15 cells (100X) (0-5/hpf); Lymphocytes 5 % (21-51); MDiff Complete? YES; Macrocytosis SLIGHT = 6-15 cells (100X) (0-5/hpf); Mean Corpuscular HGB CONC 30.3 g/dL (32.0-36.0); Mean Corpuscular Hemoglobin 35.8 pg (27.0-31.0); Mean Platelet Volume 9.5 fL (7.4-10.4); Metamyelocyte 1 % (0-0); Monocytes 5 % (0-10); Neutrophil 74 % (42-75); Platelet Count 101 thou/uL (130-400); Platelet Morphology Comment Appears Decreased; RBC Distribution Width 17.3 % (11.5-14.5); Red Blood Cell (RBC) Count 2.54 mill/uL (4.70-6.10)
[2021-10-08 04:26] LABS: ALT (SGPT) 477 U/L (8-55); AST (SGOT) 655 U/L (5-34); Albumin 2.7 g/dL (3.4-4.8); Alkaline Phosphatase 139 U/L (40-110); Anion Gap 31 mmol/L (10-20); BUN (Urea Nitrogen) 93 mg/dL (8.4-25.7); Bilirubin, Total 0.8 mg/dL (0.2-1.2); Calc. Creatinine Clearance 25 mL/min (70-130); Calcium 9.7 mg/dL (7.8-10.44); Carbon Dioxide 14 mmol/L (23-31); Chloride 97 mmol/L (98-107); Globulin 2.3 g/dL (2.4-3.5); Magnesium 2.8 mg/dL (1.6-2.6); Phosphorus 9.6 mg/dL (2.3-4.7); Potassium 6.1 mmol/L (3.5-5.1); Sodium 136 mmol/L (136-145)
[2021-10-08 04:27] LABS: Glucose 1321 mg/dL (83-110)
[2021-10-08 04:42] LABS: Hemoglobin A1c 12.9 % (4.0-6.0)
[2021-10-08] MEDS ORDERED: Vancomycin 1.5 GRAM/300 ML BAG 1.5 GM in Premix Bag 1 BAG IVPB SCH (05:00)
[2021-10-08] MEDS ORDERED: Norepinephrine 8 MG/0.9% NS 250 ML IVPB SCH (05:00)
[2021-10-08 05:09] LABS: Glucose 1232 mg/dL (83-110)
[2021-10-08] MEDS ORDERED: Cefepime 1 GM in Sodium Chloride 0.9% 100 ML IVPB SCH (06:00)
[2021-10-08 06:14] LABS: Glucose 1235 mg/dL (83-110)
[2021-10-08 07:35] LABS: Glucose 1224 mg/dL (83-110); Troponin I 1.495 ng/mL (< 0.028)
[2021-10-08 07:40] VITALS: BP 80/53
[2021-10-08 08:08] LABS: Actual Bicarbonate (HCO3a) 15.3 mEq/L (22-28); Base Excess (BEa) -7.1 mEq/L (-2.0 to +3.0); CO2 Tension 21.2 mmHg (35.0-45.0); Calcium, Ionized (arterial) 1.14 mmol/L (1.12-1.30); Carboxyhemoglobin (COHb) 0.1 gm% (0.0-3.0); Hemoglobin (Hb) 8.1 g/dL (14.0-18.0); O2 Tension (PaO2), arterial 147.1 mmHg (> 70.0); Potassium - ABG Lab 4.43 mmol/L (3.70-5.30); pH, Arterial 7.48 (7.35-7.45)
[2021-10-08 08:09] LABS: Puncture Site RRA
[2021-10-08 08:25] LABS: Glucose 1154 mg/dL (83-110)
[2021-10-08] MEDS ORDERED: Heparin 10,000 UNITS/ 10 ML VIAL ONE (08:51)
[2021-10-08 08:52] LABS: HBSAB Concentration Less than 8.00 mIU/mL; HBSAg Index 0.28 S/CO (0-0.99); Hep B Core Total Ab Non-Reactive (NonReactive); Hep B Core Total Index 0.04 S/CO (0-0.79); Hep B Surf AB Non-Reactive (NonReactive); Hep B Surf Ag Non-Reactive S/CO (NonReactive); Hep C IgG Ab Non-Reactive (NonReactive); Hep C Index 0.05 S/CO (0-0.79)
[2021-10-08] MEDS ORDERED: Famotidine 20 MG TAB PO SCH (09:00)
[2021-10-08] MEDS ORDERED: Famotidine/PF 20 mg/2ml Vial SLOW IVP SCH (09:00)
[2021-10-08] MEDS ORDERED: Vasopressin 20 UNIT, Admixture Fee 1 EACH in Sodium Chloride 0.9% 50 ML IV SCH (09:30)
[2021-10-08 09:34] LABS: Anion Gap 26 mmol/L (10-20); BUN (Urea Nitrogen) 86 mg/dL (8.4-25.7); Calc. Creatinine Clearance 29 mL/min (70-130); Calcium 8.6 mg/dL (7.8-10.44); Carbon Dioxide 16 mmol/L (23-31); Chloride 100 mmol/L (98-107); Potassium 4.3 mmol/L (3.5-5.1); Sodium 138 mmol/L (136-145)
[2021-10-08 09:41] LABS: Glucose 1008 mg/dL (83-110)
[2021-10-08 12:42] VITALS: TEMP 94.4
[2021-10-09] MEDS ORDERED: Vancomycin HCl 500 MG in Sodium Chloride 0.9% 100 ML IVPB SCH (04:00)
== END 2021-10-08 10:54 | disposition expired ==
LOC: ERS 00:08 → CCU 00:30
PROVIDERS: ADMIT Internal Medicine; ATTEND Internal Medicine
PROC: 3E033XZ Introduction of Vasopressor into Peripheral Vein, Percutaneous Approach (ICD-10-PCS; principal; 2021-10-08)
PROC: 0BH17EZ Insertion of Endotracheal Airway into Trachea, Via Natural or Artificial Opening (ICD-10-PCS; 2021-10-08)
PROC: 5A1935Z Respiratory Ventilation, Less than 24 Consecutive Hours (ICD-10-PCS; 2021-10-08)
PROC: 0D9670Z Drainage of Stomach with Drainage Device, Via Natural or Artificial Opening (ICD-10-PCS; 2021-10-08)
PROC: 02HV33Z Insertion of Infusion Device into Superior Vena Cava, Percutaneous Approach (ICD-10-PCS; 2021-10-08)
PROC: 5A1D70Z Performance of Urinary Filtration, Intermittent, Less than 6 Hours Per Day (ICD-10-PCS; 2021-10-08)
PROC: 5A12012 Performance of Cardiac Output, Single, Manual (ICD-10-PCS; 2021-10-08)
DX: I47.2 Ventricular tachycardia (principal); E11.10 Type 2 diabetes mellitus with ketoacidosis without coma; I21.A1 Myocardial infarction type 2; E11.00 Type 2 diabetes mellitus with hyperosmolarity without nonketotic hyperglycemic-hyperosmolar coma (NKHHC); G93.41 Metabolic encephalopathy; J96.00 Acute respiratory failure, unspecified whether with hypoxia or hypercapnia; N17.0 Acute kidney failure with tubular necrosis; K72.00 Acute and subacute hepatic failure without coma; S22.41XA Multiple fractures of ribs, right side, initial encounter for closed fracture; C79.51 Secondary malignant neoplasm of bone; E87.2 Acidosis; S27.321A Contusion of lung, unilateral, initial encounter; Z23 Encounter for immunization; Z66 Do not resuscitate; Z20.822 Contact with and (suspected) exposure to COVID-19; I49.01 Ventricular fibrillation; E78.5 Hyperlipidemia, unspecified; D64.9 Anemia, unspecified; M10.9 Gout, unspecified; E87.5 Hyperkalemia; I48.20 Chronic atrial fibrillation, unspecified; R79.1 Abnormal coagulation profile; I46.2 Cardiac arrest due to underlying cardiac condition; N18.9 Chronic kidney disease, unspecified; R57.0 Cardiogenic shock; I12.9 Hypertensive chronic kidney disease with stage 1 through stage 4 chronic kidney disease, or unspecified chronic kidney disease; E11.22 Type 2 diabetes mellitus with diabetic chronic kidney disease; E83.52 Hypercalcemia; I49.3 Ventricular premature depolarization; L89.622 Pressure ulcer of left heel, stage 2; L89.519 Pressure ulcer of right ankle, unspecified stage; C50.921 Malignant neoplasm of unspecified site of right male breast; S81.802A Unspecified open wound, left lower leg, initial encounter; S81.801A Unspecified open wound, right lower leg, initial encounter; Z88.0 Allergy status to penicillin; Z88.5 Allergy status to narcotic agent; Z79.02 Long term (current) use of antithrombotics/antiplatelets; Z79.899 Other long term (current) drug therapy; Z79.01 Long term (current) use of anticoagulants; Z90.09 Acquired absence of other part of head and neck; Z98.890 Other specified postprocedural states; Z85.3 Personal history of malignant neoplasm of breast; Z78.1 Physical restraint status; Z87.891 Personal history of nicotine dependence; Z90.11 Acquired absence of right breast and nipple
CPT/HCPCS: 31500; 36415; 36416; 36600; 51702; 71045; 80053; 81003; 81015; 82010; 82553; 82805; 83036; 83605; 83690; 83735; 83880; 83930; 84100; 84484; 85025; 85610; 85730; 86704; 86706; 86803; 87040; 87340; 90935; 93005; 93306; 94002; 96365; 96368; 96375; 96376; 99292; G0257; J0171; J0282; J0692; J1642; J1644; J1815; J3010; J3370; J3490; J7050; J7070; U0002